=== PATIENT | female | born 1990 | race Caucasian/White ===

== ENCOUNTER 2016-05-22 20:55 | Emergency (ER) | payer OTHER ==
[2016-05-22 20:55] VITALS: BMI 23.5
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
[2016-05-22 21:27] VITALS: BP 107/69; PULSE 77; RESP 18; TEMP 98.3; O2SAT 100
[2016-05-22 21:45] LABS: URINE APPEARANCE CLEAR (CLEAR); URINE BILIRUBIN NEGATIVE (NEGATIVE); URINE BLOOD NEGATIVE (NEGATIVE); URINE COLOR YELLOW (YELLOW); URINE GLUCOSE (UA) NEGATIVE (NEGATIVE); URINE KETONE NEGATIVE (NEGATIVE); URINE LEUKOCYTE ESTERASE LARGE Leu/uL (NEGATIVE); URINE PROTEIN TRACE mg/dL (<30 mg/dL); URINE UROBILINOGEN 0.2 E.U./dL (<1 E.U./dL)
[2016-05-22 21:50] LABS: URINE EPITHELIAL CELLS MANY /hpf (0-5)
--- NOTE | 2016-05-23 18:31 | CARD ---
APPROVED REPORT EKG Measurement Heart [id number] <Conclusion> Normal sinus rhythm Incomplete right bundle branch block Prolonged QT Abnormal ECG
== END 2016-05-22 22:19 | disposition left against medical advice (07) ==
LOC: ED 20:55
DX: R55 Syncope and collapse (principal); F41.9 Anxiety disorder, unspecified; F19.10 Other psychoactive substance abuse, uncomplicated

== ENCOUNTER 2016-07-28 18:44 | Inpatient (IN) | payer MEDICAID, OTHER ==
[2016-07-28 18:45] VITALS: BMI 20.7
--- NOTE | 2016-07-28 19:04 | ED PDOC ---
Arrival/HPI <Willem Lewis - Last Filed: 07/28/16 22:03> - General Historian: Patient - History of Present Illness Time/Duration: Prior to Arrival Context: Home <Frida Gamino - Last Filed: 07/29/16 15:32> - General Chief Complaint: Lower Extremity Problem/Injury Time Seen by Provider: 07/28/16 18:47 - History of Present Illness Narrative History of Present Illness (Text): 07/28/16 18:58 This 25 yo female presents to this ED c/o right hip pain x [employer]. Patient stated she loss balanced while walking on her driveway, falling on her right side. Patient is c/o severe pain, and she is requesting pain medication. Patient denies head injury, back pain, sob, cp, abdominal pain, dizziness, or syncope. Patient stated she discharge fro [facility] early this morning. (Frida Gamino) Past Medical History - Provider Review Nursing Documentation Reviewed: Yes - Infectious Disease Hx of Infectious Diseases: None - Past Medical History Past Medical History: Unable to Obtain - Cardiac Hx Hypertension: No - Pulmonary Hx Tuberculosis: No - Neurological Hx Seizures: Yes - HEENT Hx HEENT Disorder: No - Renal Hx Renal Disorder: No - Endocrine/Metabolic Hx Endocrine Disorders: No - Hematological/Oncological Hx Anemia: Yes - Integumentary Hx Dermatological Disorder: No - Musculoskeletal/Rheumatological Hx Musculoskeletal Disorders: No - Gastrointestinal Hx Gastrointestinal Disorders: No - Genitourinary/Gynecological Hx Sexually Transmitted Diseases: No - Psychiatric Hx Anxiety: Yes Hx Bipolar Disorder: Yes Hx Depression: Yes Hx Substance Use: Yes - Past Surgical History Past Surgical History: Unable to Obtain - Surgical History Hx Section: Yes - Anesthesia Hx Anesthesia: Yes Hx Anesthesia Reactions: No Hx Malignant Hyperthermia: No - Suicidal Assessment Feels Threatened In Home Enviroment: No <Frida Gamino - Last Filed: 07/29/16 15:32> Family/Social History - Physician Review Nursing Documentation Reviewed: Yes Family/Social History: No Known Family HX Smoking Status: Heavy Smoker > 10 Cigarettes Daily Hx Alcohol Use: No Frequency of alcohol use: Socially Hx Substance Use: Yes Substance used: heroin, cocaine, methadone Hx Substance Use Treatment: Yes ([facility]) <Frida Gamino - Last Filed: 07/29/16 15:32> Allergies/Home Meds <Willem Lewis - Last Filed: 07/28/16 22:03> <Frida Gamino - Last Filed: 07/29/16 15:32> Allergies/Adverse Reactions: Allergies Penicillins Allergy (Verified 07/21/16 13:26) cheese Adverse Reaction (Intermediate, Verified 07/12/16 12:54) RASH Home Medications: Home Meds Medication Instructions Recorded Confirmed Gabapentin 300 mg PO BID 07/21/16 07/29/16 Review of Systems - Review of Systems Constitutional: Normal. absent: Fatigue, Weight Change, Fevers Eyes: Normal ENT: Normal Respiratory: Normal. absent: SOB, Cough Cardiovascular: Normal. absent: Chest Pain, Palpitations Gastrointestinal: Normal. absent: Abdominal Pain, Nausea, Vomiting Genitourinary Female: Normal. absent: Dysuria, Frequency, Hematuria, Vaginal Bleeding, Vaginal Discharge Musculoskeletal: Other (See HPI) Skin: Normal Neurological: Normal. absent: Headache, Dizziness, Focal Weakness, Speech Changes, Facial Droop Endocrine: Normal. absent: Polydipsia Hemo/Lymphatic: Normal Psychiatric: Normal, Other (HX. Poly substance abuse) <Frida Gamino - Last Filed: 07/29/16 15:32> Physical Exam Temperature: Afebrile Blood Pressure: Normal Pulse: Regular Respiratory Rate: Normal Appearance: Positive for: Well-Appearing, Non-Toxic, Comfortable Pain Distress: None Mental Status: Positive for: Alert and Oriented X 3 - Systems Exam Head: Present: Atraumatic, Normocephalic, Other (No raccoon sign. No britton sign) Pupils: Present: PERRL Extroacular Muscles: Present: EOMI. No: Entrapment Conjunctiva: Present: Normal Ears: Present: Normal, NORMAL TM, Normal Canal, Other (No hemotympanum). No: Erythema, TM Bulging, Fluid, TM Perf Mouth: Present: Moist Mucous Membranes Pharnyx: Present: Normal. No: ERYTHEMA, EXUDATE, TONSILS ENLARGED Nose (External): Present: Atraumatic Nose (Internal): Present: Normal Inspection Neck: Present: Normal Range of Motion, Trachea Midline. No: Meningeal Signs, MIDLINE TENDERNESS, Paraspinal Tenderness, Lymphadenopathy Respiratory/Chest: Present: Clear to Auscultation, Good Air Exchange. No: Respiratory Distress, Accessory Muscle Use Cardiovascular: Present: Regular Rate and Rhythm, Normal S1, S2. No: Murmurs Abdomen: Present: Normal Bowel Sounds. No: Tenderness, Distention, Peritoneal Signs Back: Present: Normal Inspection. No: CVA Tenderness, Midline Tenderness, Paraspinal Tenderness Upper Extremity: Present: Normal Inspection, Normal ROM, NORMAL PULSES, Neurovascularly Intact, Capillary Refill < 2s. No: Cyanosis, Edema, Tenderness , Deformity Lower Extremity: Present: NORMAL PULSES, Neurovascularly Intact, Capillary Refill < 2 s, Other (Patient did not allow me to move right lower extremity. Limited evaluation od right lower extremity. Severe tenderness right hip, when right lower leg was flexed. Patient noted mild right knee tenderness. no ankle or foot tenderness. no deformity. Pedis pulses b/l normal, +2). No: Edema, CALF TENDERNESS Neurological: Present: GCS=15, CN II-XII Intact, Speech Normal, Motor Func Grossly Intact, Normal Sensory Function, Normal Cerebellar Funct Skin: Present: Warm, Dry, Normal Color. No: Rashes Psychiatric: Present: Alert, Oriented x 3, Normal Insight, Normal Concentration <Frida Gamino - Last Filed: 07/29/16 15:32> Vital Signs Temp Pulse Resp BP Pulse Ox 07/28/16 18:45 98.9 F 106 H 19 134/80 100 Medical Decision Making <Willem Lewis - Last Filed: 07/28/16 22:03> Re-evaluation Time: 22:21 Reassessment Condition: Re-examined, Improving,but remains with symptoms - Lab Interpretations I have reviewed the lab results: Yes Interpretation: No clinic. lab abnormalty <Frida Gamino - Last Filed: 07/29/16 15:32> ED Course and Treatment: 07/28/16 22:[address] Gruber regarding right hip fracture. He agrees with plan for admission, and recommended to call orthopedist. 07/28/16 22:[address] Taylor Orthopedist who reviewed images, and he recommended to have patient transfer to a Trauma center to preserve right femoral head. 07/29/16 01:15 [place] [facility], [facility], and [facility] to attempt to transfer patient without success. I communicate this with Dr. Quinteros. 07/29/16 01:28 Dr. Quinteros had called [facility] to set up team for emergency hip surgery in this hospital (Frida Gamino) - Lab Interpretations Lab Results: 07/28/16 22:55 07/29/16 00:02 Lab Results 07/29/16 00:59: Blood Type Confirm O POSITIVE 07/29/16 00:02: Blood Type O POSITIVE, Antibody Screen Negative, Crossmatch See Detail, BBK History Checked No verified bt 07/29/16 00:02: Sodium 137, Potassium 4.7, Chloride 101, Carbon Dioxide 28, Anion Gap 13, BUN 21, Creatinine 0.7, Est GFR ( Amer) > 60, Est GFR (Non- Af Amer) > 60, Random Glucose 128 H, Calcium 9.5, Total Bilirubin 0.5, AST 78 H , ALT 108 H, Alkaline Phosphatase 117, Total Protein 8.6 H, Albumin 3.6, Globulin 5.0, Albumin/Globulin Ratio 0.7 L 07/28/16 22:55: Urine Color Light yellow, Urine Appearance Clear, Urine pH 6.0, Ur Specific [facility] 1.015, Urine Protein Negative, Urine Glucose (UA) Negative, Urine Ketones Negative, Urine Blood Negative, Urine Nitrate Negative, Urine Bilirubin Negative, Urine Urobilinogen 0.2, Ur Leukocyte Esterase Trace H, Urine RBC 0 - 2, Urine WBC 2 - 5, Ur Epithelial Cells 0 - 2, Urine Bacteria Trace 07/28/16 22:55: PT 10.6, INR 0.98, APTT 23.7 07/28/16 22:55: WBC 12.6 H D, RBC 4.32, Hgb 12.3, Hct 36.4, MCV 84.3, MCH 28.5, MCHC 33.8, RDW 13.1, Plt Count 253, MPV 11.4 H, Gran % 78.8 H, Lymph % (Auto) 15.9 L, [place] % (Auto) 4.9, Eos % (Auto) 0.2 L, Baso % (Auto) 0.2, Gran # 9.88 H , Lymph # 2.0, [place] # 0.6, Eos # 0.0, Baso # 0.03 07/28/16 19:25: Beta HCG, Quant < 2.39 - RAD Interpretation Narrative RAD Interpretations (Text): 07/28/16 22:15 Right Hip X-rays: Right femoral neck fracture. Knee x-rays: No knee fracture (Gamino,Nahim P) Radiology Orders: 07/28/16 18:57 Hip Right [HIP MIN 2V W/ PELVIS RT] [RAD] Stat KNEE RIGHT 2 VIEWS (AP & LAT) [RAD] Stat - Medication Orders Current Medication Orders: Acetaminophen (Tylenol 325mg Tab) 650 mg PO Q4 PRN PRN Reason: Fever >100.4 F Last Admin: 07/29/16 07:35 Dose: 650 mg Re-Assess: [facility] Pain/Vitals Document 07/29/16 08:35 YANE (Rec: 07/29/16 14:57 YANE [facility] [id number]) Pain Reassessment Is This A Pain ReAssessment? No Sleep Is patient sleeping during reassessment? No Presence of Pain Presence of Pain Yes Diphenhydramine HCl (Benadryl) 50 mg IVP Q4 PRN PRN Reason: Allergy symptoms Last Admin: 07/29/16 12:30 Dose: 50 mg Comments: Pt states eyes are itching/burning Enoxaparin Sodium (Lovenox) 40 mg SC DAILY GARY PRN Reason: Protocol Last Admin: 07/29/16 12:00 Dose: 40 mg Hydromorphone HCl (Dilaudid) 0.5 mg IVP Q4H PRN PRN Reason: Pain, severe (8-10) Last Admin: 07/29/16 12:29 Dose: 0.5 mg Re-Assess: [facility] Pain Assessment Document 07/29/16 13:29 YANE (Rec: 07/29/16 14:35 YANE [facility] [id number]) Pain Reassessment Is this a pain reassessment? Yes Sleep Is patient sleeping during reassessment? No Presence of Pain Presence of Pain Yes Pain Scale Used Pain Scale Used Numeric Location Left, Right or Bilateral Right Pain Location Body Site Hip Description Intensity of Pain at present 10 Acceptable Level of Pain 0 Hydromorphone HCl (Dilaudid) 0.5 mg IVP Q15M PRN PRN Reason: Pain, moderate (4-7) Last Admin: 07/29/16 06:40 Dose: 0.5 mg Sodium Chloride (Sodium Chloride 0.9%) 1,000 mls @ 100 mls/hr IV .Q10H GARY Last Admin: 07/29/16 14:44 Dose: 100 mls/hr Clindamycin Phosphate 900 mg/ (Sodium Chloride) 106 mls @ 106 mls/hr IVPB Q8 GARY PRN Reason: Protocol Stop: 07/29/16 22:59 Last Admin: 07/29/16 14:56 Dose: 106 mls/hr Ondansetron HCl (Zofran Inj) 4 mg IVP ONCE PRN PRN Reason: Nausea/Vomiting Discontinued Medications Acetaminophen (Tylenol 325mg Tab) 650 mg PO STAT STA Stop: 07/28/16 19:02 Last Admin: 07/28/16 21:19 Dose: 650 mg Re-Assess: MAR Pain/Vitals Document 07/28/16 22:19 OCS (Rec: 07/29/16 00:03 OCS [id number]) Pain Reassessment Is This A Pain ReAssessment? Yes Sleep Is patient sleeping during reassessment? No Presence of Pain Presence of Pain Yes Clindamycin Phosphate (Cleocin) Confirm Administered Dose 600 mg .ROUTE .STK- MED ONE Stop: 07/29/16 03:41 Last Admin: 07/29/16 03:45 Dose: 600 mg Comments: ORM Administered Route: IVPB Fentanyl (Fentanyl) Confirm Administered Dose 200 mcg .ROUTE .STK-MED ONE Stop: 07/29/16 02:28 Hydromorphone HCl (Dilaudid) 1 mg IVP STAT STA Stop: 07/28/16 22:26 Last Admin: 07/28/16 22:57 Dose: 1 mg Hydromorphone HCl (Dilaudid) 2 mg IVP STAT STA Stop: 07/28/16 23:51 Last Admin: 07/28/16 23:59 Dose: 2 mg Hydromorphone HCl (Dilaudid) Confirm Administered Dose 0.5 mg .ROUTE .STK-MED ONE Stop: 07/29/16 06:15 Hydromorphone HCl (Dilaudid) Confirm Administered Dose 0.5 mg .ROUTE .STK-MED ONE Stop: 07/29/16 06:42 Ceftriaxone Sodium (Rocephin 1 Gram Ivpb) 1 gm in 100 mls @ 200 mls/hr IVPB STAT STA PRN Reason: Protocol Stop: 07/29/16 03:10 Lactated Ringer's (Lactated Ringer's) 1,000 mls @ 75 mls/hr IV .[id number] GARY Stop: 07/29/16 07:53 Ketorolac Tromethamine (Toradol) 30 mg IM STAT STA Stop: 07/28/16 18:57 Last Admin: 07/28/16 21:19 Dose: 30 mg Re-Assess: MANINDER Pain Assessment Document 07/28/16 22:19 OCS (Rec: 07/29/16 00:03 OCS [id number]) Pain Reassessment Is this a pain reassessment? Yes Sleep Is patient sleeping during reassessment? No Presence of Pain Presence of Pain Yes Ketorolac Tromethamine (Toradol) 30 mg IM ONCE ONE Stop: 07/29/16 05:53 Lidocaine HCl (Lidocaine 1% (20ml)) Confirm Administered Dose 20 ml .ROUTE .STK- MED ONE Stop: 07/29/16 02:28 Midazolam HCl (Versed Inj) Confirm Administered Dose 2 mg .ROUTE .STK-MED ONE Stop: 07/29/16 02:28 Pneumococcal Polyvalent Vaccine (Pneumovax 23 Vaccine) 0.5 ml IM .ONCE ONE Stop: 07/29/16 13:41 Propofol (Diprivan) Confirm Administered Dose 400 mg .ROUTE .STK-MED ONE Stop: 07/29/16 02:28 Rocuronium [place] (Zemuron) Confirm Administered Dose 50 mg .ROUTE .STK-MED ONE Stop: 07/29/16 02:28 Succinylcholine Chloride (Quelicin) Confirm Administered Dose 200 mg IV .STK- MED ONE Stop: 07/29/16 02:28 - PA / CORRECTIONS NURSE / Resident Statement ENRIQUE has reviewed & agrees with the documentation as recorded. ENRIQUE has examined the patient and agrees with the treatment plan. <Willem Lewis - Last Filed: 07/28/16 22:03> Disposition/Present on Arrival <Willem Lewis - Last Filed: 07/28/16 22:03> - Present on Arrival Any Indicators Present on Arrival: No History of DVT/PE: No History of Uncontrolled Diabetes: No Urinary Catheter: No History of Decub. Ulcer: No History Surgical Site Infection Following: None - Disposition Have Diagnosis and Disposition been Completed?: Yes Disposition Time: 01:30 Patient Plan: Admission <Gamino,Nahim P - Last Filed: 07/29/16 15:32> - Disposition Diagnosis: Femoral neck fracture Disposition: HOSPITALIZED Patient Problems: Current Active Problems Problem Status Onset Femoral neck fracture Acute Condition: STABLE
[2016-07-28] MEDS ORDERED: HYDROmorphone 1 mg/ml ISec IVP STA (22:25)
[2016-07-28 23:05] LABS: ADD MANUAL DIFF? NO
[2016-07-28 23:12] LABS: BASO # 0.03 K/mm3 (0.0-2.0); BASO % 0.2 % (0.0-3.0); EOS % 0.2 % (1.5-5.0); GRAN # 9.88 (1.4-6.5); GRAN % 78.8 % (50.0-68.0); HEMATOCRIT 36.4 % (36.0-48.0); LYMPH % 15.9 % (22.0-35.0); MEAN CELL VOLUME 84.3 fL (80.0-105.0); MEAN CORPUSCULAR HEMOGLOBIN 28.5 pg (25.0-35.0); MEAN CORPUSCULAR HGB CONC 33.8 g/dl (31.0-37.0); MEAN PLATELET VOLUME 11.4 fl (7.0-11.0); MONO # 0.6 (0.1-0.6); MONO % 4.9 % (1.0-6.0); PLATELET COUNT 253 10^3/uL (120.0-450.0); RED CELL DISTRIBUTION WIDTH 13.1 % (11.5-14.5); URINE BILIRUBIN NEGATIVE (NEGATIVE); URINE BLOOD NEGATIVE (NEGATIVE); URINE GLUCOSE (UA) NEGATIVE (NEGATIVE); URINE KETONE NEGATIVE (NEGATIVE); URINE LEUKOCYTE ESTERASE TRACE Leu/uL (NEGATIVE); URINE PROTEIN NEGATIVE mg/dL (<30 mg/dL); URINE UROBILINOGEN 0.2 E.U./dL (<1 E.U./dL); WHITE BLOOD COUNT 12.6 10^3/ul (4.5-11.0)
[2016-07-28 23:13] LABS: URINE COLOR LIGHT YELLOW (YELLOW)
[2016-07-28 23:14] LABS: URINE APPEARANCE CLEAR (CLEAR)
[2016-07-28 23:23] LABS: INR 0.98 (0.93-1.08); PARTIAL THROMBOPLASTIN TIME 23.7 Seconds (23.7-30.8)
[2016-07-28] MEDS ORDERED: HYDROmorphone 2 mg/ml ISec IVP STA (23:50)
[2016-07-28 23:54] LABS: URINE BACTERIA TRACE (NEG); URINE EPITHELIAL CELLS 0 - 2 /hpf (0-5); URINE RBC 0 - 2 /hpf (0-2)
[2016-07-29 00:36] LABS: ALB/GLOB RATIO 0.7 (1.1-1.8); ALKALINE PHOSPHATASE 117 U/L (38-133); ALT/SGPT 108 U/L (7-56); AST/SGOT 78 U/L (15-39); BILIRUBIN,TOTAL 0.5 mg/dL (0.2-1.3); BLOOD UREA NITROGEN 21 mg/dL (7-21); CALCIUM 9.5 mg/dL (8.4-10.5); CARBON DIOXIDE 28 mmol/L (21-33); GFR AFRICAN-AMERICAN > 60; GLUCOSE,RANDOM 128 mg/dL (70-110); POTASSIUM 4.7 mmol/L (3.6-5.0); SODIUM 137 mmol/L (132-148); TOTAL PROTEIN 8.6 g/dL (5.8-8.3)
[2016-07-29 00:38] LABS: CHLORIDE 101 mmol/L (98-107)
[2016-07-29] MEDS ORDERED: Lidocaine 1% Inj (20ml) ONE (02:27)
[2016-07-29] MEDS ORDERED: Propofol 10 mg/ml Inj (20 ML) ONE (02:27)
[2016-07-29] MEDS ORDERED: Rocuronium 10 mg/ml (5 ml) ONE (02:27)
[2016-07-29] MEDS ORDERED: Midazolam 2 MG/2 ML VIAL ONE (02:27)
[2016-07-29] MEDS ORDERED: Succinylcholine 200 mg/10 ml Inj IV ONE (02:27)
[2016-07-29] MEDS ORDERED: cefTRIAXone 1 gm 1 GM/100 ML BAG IVPB STA (02:41)
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
[2016-07-29] MEDS ORDERED: Lactated Ringer's 1,000 ML IV SCH (05:52)
--- NOTE | 2016-07-29 06:05 | PCM.SURG1 ---
Surgeon's Initial Post Op Note - Surgeon's Notes Surgeon: Dr. Quinteros Service Order Dispatcher Chief: Jagdish Soto PGY-1 Type of Anesthesia: General Endo Pre-Operative Diagnosis: Right surgical neck fracture of femur Operative Findings: same Post-Operative Diagnosis: same Operation Performed: R ORIF w/ pinning x3 Specimen/Specimens Removed: n/a Estimated Blood Loss: EBL {In ML}: 75 Blood Products Given: N/A Drains Used: No Drains Post-Op Condition: Good Date of Surgery/Procedure: 07/29/16 Time of Surgery/Procedure: 03:45
[2016-07-29] MEDS: HYDROmorphone 0.5 mg/0.5 ml ISec IVP PRN ×6 (06:10→20:51)
[2016-07-29] MEDS ORDERED: HYDROmorphone 0.5 mg/0.5 ml ISec ONE ×2 (06:14→06:41)
[2016-07-29] MEDS: Enoxaparin 40 mg Syringe SC SCH ×2 (06:40→12:00)
[2016-07-29 09:25] LABS: ADD MANUAL DIFF? NO
--- NOTE | 2016-07-29 09:25 | RAD ---
PROCEDURE: Right hip portable HISTORY: s/p R ORIF COMPARISON: TECHNIQUE: Single-view FINDINGS: There are 3 orthopedic screws in the right hip. There is anatomic alignment. No complicating factors IMPRESSION: As above
--- NOTE | 2016-07-29 09:28 | RAD ---
PROCEDURE: Right Knee Radiographs. HISTORY: pain COMPARISON: None. FINDINGS: BONES: Normal. No fracture. JOINTS: Normal. No osteoarthritis. JOINT EFFUSION: None. OTHER FINDINGS: None. IMPRESSION: Normal radiographs of the right knee.
--- NOTE | 2016-07-29 09:28 | RAD ---
PROCEDURE: Pelvis and right hip HISTORY: pain s/p fall COMPARISON: TECHNIQUE: Two views FINDINGS: There is a displaced transverse right femoral neck fracture. The pelvis is intact IMPRESSION: There is a displaced transverse right femoral neck fracture. The pelvis is intact
[2016-07-29 09:33] LABS: BASO # 0.01 K/mm3 (0.0-2.0); BASO % 0.1 % (0.0-3.0); EOS % 0.2 % (1.5-5.0); GRAN # 6.85 (1.4-6.5); HEMATOCRIT 29.7 % (36.0-48.0); LYMPH # 1.3 (1.2-3.4); LYMPH % 14.3 % (22.0-35.0); MEAN CELL VOLUME 82.3 fL (80.0-105.0); MEAN CORPUSCULAR HEMOGLOBIN 27.1 pg (25.0-35.0); MEAN PLATELET VOLUME 11.6 fl (7.0-11.0); MONO # 0.7 (0.1-0.6); MONO % 7.4 % (1.0-6.0); PLATELET COUNT 214 10^3/uL (120.0-450.0); WHITE BLOOD COUNT 8.8 10^3/ul (4.5-11.0)
[2016-07-29 09:43] LABS: ALB/GLOB RATIO 0.7 (1.1-1.8); ALKALINE PHOSPHATASE 108 U/L (38-133); ALT/SGPT 97 U/L (7-56); AST/SGOT 63 U/L (15-39); BILIRUBIN,TOTAL 0.6 mg/dL (0.2-1.3); BLOOD UREA NITROGEN 19 mg/dL (7-21); CARBON DIOXIDE 27 mmol/L (21-33); CHLORIDE 103 mmol/L (98-107); GFR AFRICAN-AMERICAN > 60; GLUCOSE,RANDOM 112 mg/dL (70-110); PHOSPHOROUS 4.3 mg/dL (2.5-4.5); POTASSIUM 4.1 mmol/L (3.6-5.0); SODIUM 138 mmol/L (132-148); TOTAL PROTEIN 7.9 g/dL (5.8-8.3)
[2016-07-29] MEDS: DiphenhydrAMINE 50 mg/ml Inj IVP PRN (12:30)
[2016-07-29] MEDS ORDERED: Pneumococcal 23-Valent Vaccine IM ONE (13:40)
--- NOTE | 2016-07-29 13:43 | RAD ---
PROCEDURE: Fluoroscopy up to 1 hour HISTORY: O.R.I.F. RIGHT HIP COMPARISON: TECHNIQUE: Fluoroscopy was provided in the operating room. Three images were submitted FINDINGS: There are 3 orthopedic screws in the right hip. There is normal alignment IMPRESSION: As above
[2016-07-29] MEDS: Sodium Chloride 0.9% 1,000 ML IV SCH (14:44)
--- NOTE | 2016-07-29 14:59 | RAD ---
HISTORY: fever COMPARISON: No prior. FINDINGS: LUNGS: The lungs are well inflated and clear. PLEURA: No significant pleural effusion identified, no pneumothorax apparent. CARDIOVASCULAR: Normal. OSSEOUS STRUCTURES: No significant abnormalities. VISUALIZED UPPER ABDOMEN: Normal. OTHER FINDINGS: None. IMPRESSION: No active pulmonary disease.
[2016-07-30] MEDS: Vancomycin 1gm in NS 250ml 1 GM/250 ML BAG IVPB SCH ×2 (00:11→10:51)
[2016-07-30] MEDS: DiphenhydrAMINE 50 mg/ml Inj IVP PRN ×2 (00:11→13:00)
[2016-07-30] MEDS: HYDROmorphone 0.5 mg/0.5 ml ISec IVP PRN ×6 (00:51→21:07)
[2016-07-30] MEDS: Aztreonam 1 Gm in NS 100mL 100 ML IVPB SCH ×3 (06:17→22:26)
[2016-07-30 07:59] LABS: ADD MANUAL DIFF? NO
[2016-07-30 08:07] LABS: BASO # 0.02 K/mm3 (0.0-2.0); BASO % 0.2 % (0.0-3.0); EOS % 0.1 % (1.5-5.0); GRAN # 7.65 (1.4-6.5); GRAN % 75.1 % (50.0-68.0); HEMATOCRIT 31.2 % (36.0-48.0); LYMPH # 1.7 (1.2-3.4); LYMPH % 16.7 % (22.0-35.0); MEAN CELL VOLUME 83.6 fL (80.0-105.0); MEAN CORPUSCULAR HEMOGLOBIN 27.9 pg (25.0-35.0); MEAN CORPUSCULAR HGB CONC 33.3 g/dl (31.0-37.0); MEAN PLATELET VOLUME 11.3 fl (7.0-11.0); MONO # 0.8 (0.1-0.6); MONO % 7.9 % (1.0-6.0); PLATELET COUNT 217 10^3/uL (120.0-450.0); RED CELL DISTRIBUTION WIDTH 12.8 % (11.5-14.5); WHITE BLOOD COUNT 10.2 10^3/ul (4.5-11.0)
[2016-07-30 08:11] LABS: ALB/GLOB RATIO 0.7 (1.1-1.8); ALKALINE PHOSPHATASE 114 U/L (38-133); ALT/SGPT 76 U/L (7-56); AST/SGOT 54 U/L (15-39); BILIRUBIN,TOTAL 0.6 mg/dL (0.2-1.3); BLOOD UREA NITROGEN 10 mg/dL (7-21); CALCIUM 8.8 mg/dL (8.4-10.5); CARBON DIOXIDE 26 mmol/L (21-33); CHLORIDE 103 mmol/L (95-110); GFR AFRICAN-AMERICAN > 60; GLUCOSE,RANDOM 115 mg/dL (70-110); MAGNESIUM 1.9 mg/dL (1.7-2.2); POTASSIUM 3.9 mmol/L (3.6-5.0); SODIUM 137 mmol/L (132-148); TOTAL PROTEIN 7.7 g/dL (5.8-8.3)
--- NOTE | 2016-07-30 08:57 | CP.PCM.PN ---
Subjective - Date & Time of Evaluation Date of Evaluation: 07/30/16 Time of Evaluation: 08:15 - Subjective Subjective: Surgical Progress note for Dr. Quinteros 25 year old female with past medical history of thrombocytopenia, depression, suicidal ideation, hep C, IV heroin and cocaine abuse was found to have right surgical neck fracture of femur after having a fall at home. Patient is s/p right ORIF with pinning POD# 1. Patient seen and examined at bedside. Overnight patient had fever of 100.4, Tylenol was given. Patient still complains of pain at surgical site. Patient reports to passing gas, but no bowel movement yet. Denies having headache, dizziness, SOB, coughs, abdominal pain, vomiting, or urinary symptoms. Objective - Vital Signs/Intake and Output Vital Signs (last 24 hours): Temp Pulse Resp BP Pulse Ox 100.2 F H 104 H 22 114/75 99 07/30/16 07:30 07/30/16 07:30 07/30/16 07:30 07/30/16 07:30 07/30/16 07:30 Intake and Output: 07/30/16 07/30/16 06:59 18:59 Intake Total 2690 Output Total 600 Balance 2090 - Medications Medications: Current Medications Acetaminophen (Tylenol 325mg Tab) 650 mg PO Q4 PRN PRN Reason: Fever >100.4 F Last Admin: 07/30/16 00:34 Dose: 650 mg Diphenhydramine HCl (Benadryl) 50 mg IVP Q4 PRN PRN Reason: Allergy symptoms Last Admin: 07/30/16 00:11 Dose: 50 mg Enoxaparin Sodium (Lovenox) 40 mg SC DAILY GARY PRN Reason: Protocol Last Admin: 07/29/16 12:00 Dose: 40 mg Hydromorphone HCl (Dilaudid) 0.5 mg IVP Q4H PRN PRN Reason: Pain, moderate (4-7) Last Admin: 07/30/16 08:19 Dose: 0.5 mg Sodium Chloride (Sodium Chloride 0.9%) 1,000 mls @ 100 mls/hr IV .Q10H GARY Last Admin: 07/29/16 14:44 Dose: 100 mls/hr Aztreonam (Azactam 1 Gm) 100 mls @ 100 mls/hr IVPB Q8 GARY PRN Reason: Protocol Stop: 08/06/16 06:01 Last Admin: 07/30/16 06:17 Dose: 100 mls/hr Vancomycin HCl (Vancomycin 1gm) 1 gm in 250 mls @ 167 mls/hr IVPB Q12H GARY PRN Reason: Protocol Last Admin: 07/30/16 00:11 Dose: 167 mls/hr - Labs Labs: 07/30/16 07:30 07/29/16 09:10 PT 10.6 Seconds (9.9-11.8) 07/28/16 22:55 INR 0.98 (0.93-1.08) 07/28/16 22:55 APTT 23.7 Seconds (23.7-30.8) 07/28/16 22:55 - Constitutional Appears: Non-toxic, No Acute Distress - Head Exam Head Exam: ATRAUMATIC, NORMAL INSPECTION, NORMOCEPHALIC - Eye Exam Eye Exam: EOMI, Normal appearance - ENT Exam ENT Exam: Mucous Membranes Moist - Neck Exam Neck Exam: Normal Inspection - Respiratory Exam Respiratory Exam: Clear to Ausculation Bilateral, NORMAL BREATHING PATTERN. absent: Wheezes - Cardiovascular Exam Cardiovascular Exam: Tachycardia, +S1, +S2. absent: Murmur - GI/Abdominal Exam GI & Abdominal Exam: Soft, Normal Bowel Sounds. absent: Tenderness - Extremities Exam Extremities Exam: Normal Capillary Refill Additional comments: Right thigh surgical dressing dry, clean, intact, no active bleeding. No signs of infection appreciated. - Neurological Exam Neurological Exam: Alert, Awake, Oriented x3 - Psychiatric Exam Psychiatric exam: Normal Affect, Normal Mood - Skin Skin Exam: Dry, Normal Color, Warm Assessment and Plan - Assessment and Plan (Free Text) Assessment: 25 year old female with past medical history of thrombocytopenia, depression, suicidal ideation, hep C, IV heroin and cocaine abuse was found to have right surgical neck fracture of femur after having a fall at home. Patient is s/p right ORIF with pinning POD# 1 Plan: Right femur surgical neck fracture -R ORIF with pinning POD #1 -Continue non weight bearing -Pain management per medical team -C/w liquid diet -Incentive spirometry -Lovenox 40mg daily D/w with attending
[2016-07-30] MEDS: Enoxaparin 40 mg Syringe SC SCH (10:51)
--- NOTE | 2016-07-30 15:15 | CP.PCM.CON ---
History of Present Illness - History of Present Illness History of Present Illness: 25 year old female with PMH of depression, polysubstance abuse (IV heroin and cocaine) came in to [facility] because of a fall while walking and injury to her right hip. In the ED, she was noted to have a right hip fracture and the patient underwent ORIF and pinning yesterday. After the surgery the patient has been having fever and Infectious Diseases consult is requested to further evaluate and manage. Currently the patient denies headache or dizziness , no sore throat, no cough or rhinorrhea, no SOB, no chest pain, no abdominal pain, no dysphagia, no diarrhea, no dysuria. Review of Systems - Review of Systems All systems: reviewed and no additional remarkable complaints except (as per HPI ) Past Patient History - Infectious Disease Hx of Infectious Diseases: None - Past Social History Smoking Status: Heavy Smoker > 10 Cigarettes Daily - CARDIAC Hx Hypertension: No - PULMONARY Hx Tuberculosis: No - NEUROLOGICAL Hx Seizures: Yes - HEENT Hx HEENT Problems: No - RENAL Hx Chronic Kidney Disease: No - ENDOCRINE/METABOLIC Hx Endocrine Disorders: No - HEMATOLOGICAL/ONCOLOGICAL Hx Anemia: Yes - INTEGUMENTARY Hx Dermatological Problems: No - MUSCULOSKELETAL/RHEUMATOLOGICAL Hx Musculoskeletal Disorders: No - GASTROINTESTINAL Hx Gastrointestinal Disorders: No - GENITOURINARY/GYNECOLOGICAL Hx Sexually Transmitted Disorders: No - PSYCHIATRIC Hx Anxiety: Yes Hx Bipolar Disorder: Yes Hx Depression: Yes Hx Substance Use: Yes - SURGICAL HISTORY Hx Section: Yes - ANESTHESIA Hx Anesthesia: Yes Hx Anesthesia Reactions: No Hx Malignant Hyperthermia: No Meds Allergies/Adverse Reactions: Allergies Allergy/AdvReac Type Severity Reaction Status Date / Time Penicillins Allergy Verified 07/21/16 13:26 cheese AdvReac Intermediate RASH Verified 07/12/16 12:54 - Medications Medications: Current Medications Acetaminophen (Tylenol 325mg Tab) 650 mg PO Q4 PRN PRN Reason: Fever >100.4 F Last Admin: 07/29/16 15:44 Dose: 650 mg Diphenhydramine HCl (Benadryl) 50 mg IVP Q4 PRN PRN Reason: Allergy symptoms Last Admin: 07/29/16 12:30 Dose: 50 mg Enoxaparin Sodium (Lovenox) 40 mg SC DAILY GARY PRN Reason: Protocol Last Admin: 07/29/16 12:00 Dose: 40 mg Hydromorphone HCl (Dilaudid) 0.5 mg IVP Q4H PRN PRN Reason: Pain, severe (8-10) Last Admin: 07/29/16 20:51 Dose: 0.5 mg Hydromorphone HCl (Dilaudid) 0.5 mg IVP Q15M PRN PRN Reason: Pain, moderate (4-7) Last Admin: 07/29/16 06:40 Dose: 0.5 mg Sodium Chloride (Sodium Chloride 0.9%) 1,000 mls @ 100 mls/hr IV .Q10H GARY Last Admin: 07/29/16 14:44 Dose: 100 mls/hr Aztreonam (Azactam 1 Gm) 100 mls @ 100 mls/hr IVPB Q8 GARY PRN Reason: Protocol Stop: 08/06/16 06:01 Vancomycin HCl (Vancomycin 1gm) 1 gm in 250 mls @ 167 mls/hr IVPB Q12H GARY PRN Reason: Protocol Ondansetron HCl (Zofran Inj) 4 mg IVP ONCE PRN PRN Reason: Nausea/Vomiting Physical Exam - Constitutional Appears: Non-toxic, No Acute Distress - Head Exam Head Exam: NORMAL INSPECTION - ENT Exam ENT Exam: Mucous Membranes Moist - Neck Exam Neck exam: Negative for: Lymphadenopathy, Meningismus - Respiratory Exam Respiratory Exam: Decreased Breath Sounds - Cardiovascular Exam Cardiovascular Exam: +S1, +S2 - GI/Abdominal Exam GI & Abdominal Exam: Soft. absent: Tenderness Results - Vital Signs Recent Vital Signs: Last Vital Signs Temp 99.2 F 07/29/16 19:17 Pulse 114 H 07/29/16 16:00 Resp 20 07/29/16 16:00 BP 117/79 07/29/16 16:00 Pulse Ox 100 07/29/16 16:00 - Labs Result Diagrams: 07/30/16 07:30 07/30/16 07:30 Labs: Laboratory Results - last 24 hr 07/29/16 07/29/16 09:10 09:10 WBC 8.8 D RBC 3.61 Hgb 9.8 L Hct 29.7 L MCV 82.3 MCH 27.1 MCHC 33.0 RDW 13.0 Plt Count 214 MPV 11.6 H Gran % 78.0 H Lymph % (Auto) 14.3 L Morrison % (Auto) 7.4 H Eos % (Auto) 0.2 L Baso % (Auto) 0.1 Gran # 6.85 H Lymph # 1.3 Morrison # 0.7 H Eos # 0.0 Baso # 0.01 Sodium 138 Potassium 4.1 Chloride 103 Carbon Dioxide 27 Anion Gap 12 BUN 19 Creatinine 0.7 Est GFR ( Amer) > 60 Est GFR (Non-Af Amer) > 60 Random Glucose 112 H Calcium 9.0 Phosphorus 4.3 Magnesium 2.0 Total Bilirubin 0.6 AST 63 H ALT 97 H Alkaline Phosphatase 108 Total Protein 7.9 Albumin 3.3 Globulin 4.6 Albumin/Globulin Ratio 0.7 L Assessment & Plan - Assessment and Plan (Free Text) Plan: Assessment Systemic Inflammatory Response Syndrome, R/O sepsis source to determined right hip fracture S/P ORIF and pinning POD #1 depression polysubstance abuse (IV heroin and cocaine) positive Hepatitis C antibody Plan Started patient on Vancomycin and Azactam pending blood, urine cx, PCT, CXR Follow up HCV RNA PCR Will order HIV test will follow clinically
--- NOTE | 2016-07-30 15:37 | CP.PCM.PN ---
<Yong Villarreal - Last Filed: 07/30/16 15:31> Subjective - Date & Time of Evaluation Date of Evaluation: 07/30/16 Time of Evaluation: 08:45 - Subjective Subjective: Internal Medicine Progress Note for Dr. Lemos Patient seen and examined at bedside. Today is hospital day 2. Overnight, continued to have a fever despite antibiotics and tylenol for temps; no other acute events. Still complaining of pain, still concerned about medications as concerned she is withdrawing from "50 bags" of heroin (states she injects into neck only, not into arms/legs/hips). Denies chest pain, shortness of breath, focal weakness, emesis. Complains only of pain and some nausea 2/2 pain. Objective - Vital Signs/Intake and Output Vital Signs (last 24 hours): Temp Pulse Resp BP Pulse Ox 100.2 F H 104 H 22 114/75 99 07/30/16 07:30 07/30/16 07:30 07/30/16 07:30 07/30/16 07:30 07/30/16 07:30 Intake and Output: 07/30/16 07/30/16 06:59 18:59 Intake Total 2690 280 Output Total 600 1000 Balance 2090 -720 - Medications Medications: Current Medications Acetaminophen (Tylenol 325mg Tab) 650 mg PO Q4 PRN PRN Reason: Fever >100.4 F Last Admin: 07/30/16 00:34 Dose: 650 mg Diphenhydramine HCl (Benadryl) 50 mg IVP Q4 PRN PRN Reason: Allergy symptoms Last Admin: 07/30/16 13:00 Dose: 50 mg Enoxaparin Sodium (Lovenox) 40 mg SC DAILY GARY PRN Reason: Protocol Last Admin: 07/30/16 10:51 Dose: 40 mg Hydromorphone HCl (Dilaudid) 0.5 mg IVP Q4H PRN PRN Reason: Pain, moderate (4-7) Last Admin: 07/30/16 12:19 Dose: 0.5 mg Sodium Chloride (Sodium Chloride 0.9%) 1,000 mls @ 100 mls/hr IV .Q10H GARY Last Admin: 07/29/16 14:44 Dose: 100 mls/hr Aztreonam (Azactam 1 Gm) 100 mls @ 100 mls/hr IVPB Q8 GARY PRN Reason: Protocol Stop: 08/06/16 06:01 Last Admin: 07/30/16 14:45 Dose: 100 mls/hr Vancomycin HCl (Vancomycin 1gm) 1 gm in 250 mls @ 167 mls/hr IVPB Q12H GARY PRN Reason: Protocol Last Admin: 07/30/16 10:51 Dose: 167 mls/hr - Labs Labs: 07/30/16 07:30 07/30/16 07:30 PT 10.6 Seconds (9.9-11.8) 07/28/16 22:55 INR 0.98 (0.93-1.08) 07/28/16 22:55 APTT 23.7 Seconds (23.7-30.8) 07/28/16 22:55 - Constitutional Appears: Non-toxic, No Acute Distress, Chronically Ill - Head Exam Head Exam: ATRAUMATIC, NORMAL INSPECTION, NORMOCEPHALIC - Eye Exam Eye Exam: EOMI, Normal appearance. absent: Conjunctival injection, Scleral icterus Pupil Exam: absent: Irregular, Unequal - ENT Exam ENT Exam: Mucous Membranes Moist - Neck Exam Neck Exam: Full ROM - Respiratory Exam Respiratory Exam: Clear to Ausculation Bilateral, NORMAL BREATHING PATTERN. absent: Rales, Rhonchi, Wheezes - Cardiovascular Exam Cardiovascular Exam: Tachycardia, REGULAR RHYTHM, +S1, +S2. absent: Bradycardia , Clicks, Irregular Rhythm, JVD, RRR, +S4, Murmur - GI/Abdominal Exam GI & Abdominal Exam: Soft, Tenderness (reports mild tenderness to all abdominal palpation, but complaint of pain incongruent with her physical reaction to palpation at site (no guarding, no flinching, no wincing)), Normal Bowel Sounds. absent: Distended, Firm, Rigid, Diminished Bowel Sounds, Hyperactive Bowel Sounds, Hypoactive Bowel Sounds - Extremities Exam Additional comments: Painful R hip, intentionally limiting RLE ROM due to pain RLE surgical site bandaged, not actively bleeding/oozing through bandaging, acutely tender to palpation at bandaged site but not around it, no gross erythema or swelling at surgical site LLE movement grossly intact RLE foot and toe movement grossly intact Sensation intact and equal in bilateral LE +2 dorsalis pedis pulses bilaterally - Neurological Exam Neurological Exam: Alert, Awake, Oriented x3 - Psychiatric Exam Psychiatric exam: Anxious, Normal Affect - Skin Skin Exam: Dry, Intact (except as noted in extremities exam), Normal Color, Warm Assessment and Plan - Assessment and Plan (Free Text) Assessment: This is a 25 yo F with PMH of thrombocytopenia, depression, suicidal ideation, hep C, IV heroin and cocaine abuse who presented to [facility] for fall resulting in R-hip fracture. She is POD #1 for ORIF with fixation. Plan: 1) Right femur surgical neck fracture -POD #1 for ORIF with fixation -Ortho (Dr. Quinteros) following, appreciate all recs -post procedure X-ray reveals anatomic alignment with [address] -Dilaudid 0.5mg IV Q4h PRN for pain -IVF NS 100ml/hr -Type and cross, 2 units PRBC on standby -Advanced to Full liquid diet, can advance to soft food tomorrow if tolerates well -PT/OT 2) Leukocytosis with fever -Tmax 101.3F, overnight max 100.4F -Likely 2/2 stress + post-surgery vs infectious etiology vs 2/2 withdrawal -ID consulted, appreciate all recs; Vanco and Aztreonam as per ID -UA showed trace LE; Urine culture negative at 48 hours -Blood cultures negative x48 hours -Continue to monitor 3) History Hep C -Positive hep c antibody in 07/20/16, not on medication -Outpatient Management 4) History of anxiety, depression, polysubstance abuse -Psych consulted, appreciate their recs -Pt complaining of anxiety, but hx of drug abuse and seeking behavior, will defer to psych Dispo: Med/Surg post ORIF with fixation of R hip (POD#1), pending blood culture results, further ID input, pending PT/OT eval FEN: Full liquids Access: Peripheral IV (given hx of abuse, avoid PICC lines or central access) Consults: Psych, ID, Ortho Ppx: Lovenox for DVT, Protonix for GI Patient seen, reviewed, and discussed with attending, Dr. Lemos. <Kyung Lemos - Last Filed: 07/30/16 18:02> Objective - Vital Signs/Intake and Output Vital Signs (last 24 hours): Temp Pulse Resp BP Pulse Ox 103 F H 104 H 22 114/75 99 07/30/16 16:43 07/30/16 07:30 07/30/16 07:30 07/30/16 07:30 07/30/16 07:30 Intake and Output: 07/30/16 07/30/16 06:59 18:59 Intake Total 2690 280 Output Total 600 1000 Balance 2090 -720 - Medications Medications: Current Medications Acetaminophen (Tylenol 325mg Tab) 650 mg PO Q4 PRN PRN Reason: Fever >100.4 F Last Admin: 07/30/16 16:43 Dose: 650 mg Diphenhydramine HCl (Benadryl) 50 mg IVP Q4 PRN PRN Reason: Allergy symptoms Last Admin: 07/30/16 13:00 Dose: 50 mg Enoxaparin Sodium (Lovenox) 40 mg SC DAILY GARY PRN Reason: Protocol Last Admin: 07/30/16 10:51 Dose: 40 mg Hydromorphone HCl (Dilaudid) 0.5 mg IVP Q4H PRN PRN Reason: Pain, moderate (4-7) Last Admin: 07/30/16 16:43 Dose: 0.5 mg Sodium Chloride (Sodium Chloride 0.9%) 1,000 mls @ 100 mls/hr IV .Q10H GARY Last Admin: 07/29/16 14:44 Dose: 100 mls/hr Aztreonam (Azactam 1 Gm) 100 mls @ 100 mls/hr IVPB Q8 GARY PRN Reason: Protocol Stop: 08/06/16 06:01 Last Admin: 07/30/16 14:45 Dose: 100 mls/hr Vancomycin HCl (Vancomycin 1gm) 1 gm in 250 mls @ 167 mls/hr IVPB Q12H GARY PRN Reason: Protocol Last Admin: 07/30/16 10:51 Dose: 167 mls/hr - Labs Labs: 07/30/16 07:30 07/30/16 07:30 PT 10.6 Seconds (9.9-11.8) 07/28/16 22:55 INR 0.98 (0.93-1.08) 07/28/16 22:55 APTT 23.7 Seconds (23.7-30.8) 07/28/16 22:55 Attending/Attestation - Attestation I have personally seen and examined this patient.: Yes I have fully participated in the care of the patient.: Yes I have reviewed all pertinent clinical information, including history, physical exam and plan: Yes Notes (Text): 07/30/16 17:58 25 year old female with past medical history of hepatitis C and substance abuse including IVDA and cocaine who presented s/p fall found to have right femur surgical neck fracture. Orthopedics evaluation was appreciated and she is s/p ORIF POD #1. PT evaluation was also appreciated who is recommending acute rehab. Patient however was noted to have fever since yesterday. ID evaluation was appreciated and patient is on iv antibiotics while awaiting cultures which are so far negative to date. She was counselled on risks of continued substance abuse. Psychiatry evaluation was requested. Elevated LFTs likely secondary to history of hepatitis C. Recommended close outpatient follow up at [facility] hepatitis clinic. Kyung Lemos MD Hospitalist.
[2016-07-31] MEDS: Vancomycin 1gm in NS 250ml 1 GM/250 ML BAG IVPB SCH ×3 (00:06→23:40)
[2016-07-31] MEDS: DiphenhydrAMINE 50 mg/ml Inj IVP PRN (00:07)
[2016-07-31] MEDS: Sodium Chloride 0.9% 1,000 ML IV SCH ×2 (00:07→16:57)
[2016-07-31] MEDS: HYDROmorphone 0.5 mg/0.5 ml ISec IVP PRN ×6 (01:05→20:48)
[2016-07-31] MEDS: Aztreonam 1 Gm in NS 100mL 100 ML IVPB SCH ×3 (05:30→22:29)
--- NOTE | 2016-07-31 07:52 | CP.PCM.PN ---
Subjective - Date & Time of Evaluation Date of Evaluation: 07/31/16 Time of Evaluation: 07:35 - Subjective Subjective: Surgery Progress Note for Dr. Quinteros Patient seen and examined at bedside. Patient had a fever of 102.7 and Tylenol was given. Patient still complains of pain at surgical site. Patient complains of right hip pain, sneezing and shaking. Patient revealed that she is a heroin addict and does 50 bags daily. Patient also receives methadone from [facility]. Denies headache, weakness, shortness of breath, chest pain, nausea, vomiting, or urinary complaints. Objective - Vital Signs/Intake and Output Vital Signs (last 24 hours): Temp Pulse Resp BP Pulse Ox 99.3 F 121 H 17 113/73 98 07/31/16 04:30 07/30/16 16:00 07/30/16 16:00 07/30/16 16:00 07/30/16 16:00 Intake and Output: 07/31/16 07/31/16 06:59 18:59 Intake Total 360 Output Total 200 Balance 160 - Medications Medications: Current Medications Acetaminophen (Tylenol 325mg Tab) 650 mg PO Q4 PRN PRN Reason: Fever >100.4 F Last Admin: 07/30/16 22:26 Dose: 650 mg Diphenhydramine HCl (Benadryl) 50 mg IVP Q4 PRN PRN Reason: Allergy symptoms Last Admin: 07/31/16 00:07 Dose: 50 mg Enoxaparin Sodium (Lovenox) 40 mg SC DAILY GARY PRN Reason: Protocol Last Admin: 07/30/16 10:51 Dose: 40 mg Hydromorphone HCl (Dilaudid) 0.5 mg IVP Q4H PRN PRN Reason: Pain, moderate (4-7) Last Admin: 07/31/16 04:35 Dose: 0.5 mg Sodium Chloride (Sodium Chloride 0.9%) 1,000 mls @ 100 mls/hr IV .Q10H GARY Last Admin: 07/31/16 00:07 Dose: 100 mls/hr Aztreonam (Azactam 1 Gm) 100 mls @ 100 mls/hr IVPB Q8 GARY PRN Reason: Protocol Stop: 08/06/16 06:01 Last Admin: 07/31/16 05:30 Dose: 100 mls/hr Vancomycin HCl (Vancomycin 1gm) 1 gm in 250 mls @ 167 mls/hr IVPB Q12H GARY PRN Reason: Protocol Last Admin: 07/31/16 00:06 Dose: 167 mls/hr - Labs Labs: 07/30/16 07:30 07/30/16 07:30 PT 10.6 Seconds (9.9-11.8) 07/28/16 22:55 INR 0.98 (0.93-1.08) 07/28/16 22:55 APTT 23.7 Seconds (23.7-30.8) 07/28/16 22:55 - Constitutional Appears: Non-toxic, No Acute Distress - Head Exam Head Exam: ATRAUMATIC, NORMAL INSPECTION, NORMOCEPHALIC - Eye Exam Eye Exam: EOMI, Normal appearance - ENT Exam ENT Exam: Mucous Membranes Moist - Neck Exam Neck Exam: Normal Inspection - Respiratory Exam Respiratory Exam: Clear to Ausculation Bilateral, NORMAL BREATHING PATTERN. absent: Wheezes, Respiratory Distress - Cardiovascular Exam Cardiovascular Exam: Tachycardia, +S1, +S2. absent: Murmur - GI/Abdominal Exam GI & Abdominal Exam: Soft, Normal Bowel Sounds. absent: Tenderness - Extremities Exam Extremities Exam: Normal Capillary Refill. absent: Joint Swelling, Pedal Edema Additional comments: Right hip wound dressing dry, clean, intact. No signs of infection appreciated. - Neurological Exam Neurological Exam: Alert, Awake, Oriented x3 - Psychiatric Exam Psychiatric exam: Normal Affect, Normal Mood - Skin Skin Exam: Normal Color, Warm Assessment and Plan - Assessment and Plan (Free Text) Assessment: 25 year old female with past medical history of thrombocytopenia, depression, suicidal ideation, hep C, IV heroin and cocaine abuse was found to have right surgical neck fracture of femur after having a fall at home. Patient is s/p right ORIF with pinning POD# 2 Plan: Right femur surgical neck fracture -R ORIF with pinning POD #1 -Start Trapeze for upper body strength -Continue non weight bearing -Pain management per medical team -C/w liquid diet -Incentive spirometry -Lovenox 40mg daily D/w with attending
[2016-07-31] MEDS: Enoxaparin 40 mg Syringe SC SCH (10:53)
--- NOTE | 2016-07-31 14:14 | CP.PCM.PN ---
<Yong Villarreal - Last Filed: 07/31/16 14:10> Subjective - Date & Time of Evaluation Date of Evaluation: 07/31/16 Time of Evaluation: 07:50 - Subjective Subjective: Internal Medicine Progress Note for Dr. Lemos Patient seen and examined at bedside. Today is hospital day 3. POD #2 for R hip ORIF with fixation. Overnight, continued to have a fever despite antibiotics and tylenol for temps; no other acute events. Still complaining of pain, still concerned about potential withdrawal from heroin. Denies chest pain , shortness of breath, focal weakness, emesis. Complains only of pain and some nausea 2/2 pain, but tolerating diet well, asking for more solid food, admits to eating pizza overnight despite instructions not to do so. Objective - Vital Signs/Intake and Output Vital Signs (last 24 hours): Temp Pulse Resp BP Pulse Ox 99.1 F 105 H 20 107/70 97 07/31/16 07:30 07/31/16 07:30 07/31/16 07:30 07/31/16 07:30 07/31/16 07:30 Intake and Output: 07/31/16 07/31/16 06:59 18:59 Intake Total 3210 300 Output Total 200 1000 Balance 3010 -700 - Medications Medications: Current Medications Acetaminophen (Tylenol 325mg Tab) 650 mg PO Q4 PRN PRN Reason: Fever >100.4 F Last Admin: 07/30/16 22:26 Dose: 650 mg Diphenhydramine HCl (Benadryl) 50 mg IVP Q4 PRN PRN Reason: Allergy symptoms Last Admin: 07/31/16 00:07 Dose: 50 mg Enoxaparin Sodium (Lovenox) 40 mg SC DAILY GARY PRN Reason: Protocol Last Admin: 07/31/16 10:53 Dose: 40 mg Hydromorphone HCl (Dilaudid) 0.5 mg IVP Q4H PRN PRN Reason: Pain, moderate (4-7) Last Admin: 07/31/16 08:16 Dose: 0.5 mg Sodium Chloride (Sodium Chloride 0.9%) 1,000 mls @ 100 mls/hr IV .Q10H GARY Last Admin: 07/31/16 00:07 Dose: 100 mls/hr Aztreonam (Azactam 1 Gm) 100 mls @ 100 mls/hr IVPB Q8 GARY PRN Reason: Protocol Stop: 08/06/16 06:01 Last Admin: 07/31/16 05:30 Dose: 100 mls/hr Vancomycin HCl (Vancomycin 1gm) 1 gm in 250 mls @ 167 mls/hr IVPB Q12H GARY PRN Reason: Protocol Last Admin: 07/31/16 10:54 Dose: 167 mls/hr - Labs Labs: 07/30/16 07:30 07/30/16 07:30 PT 10.6 Seconds (9.9-11.8) 07/28/16 22:55 INR 0.98 (0.93-1.08) 07/28/16 22:55 APTT 23.7 Seconds (23.7-30.8) 07/28/16 22:55 - Additional Findings Additional findings: - Constitutional Appears: Non-toxic, No Acute Distress, Chronically Ill - Head Exam Head Exam: ATRAUMATIC, NORMAL INSPECTION, NORMOCEPHALIC - Eye Exam Eye Exam: EOMI, Normal appearance. absent: Conjunctival injection, Scleral icterus Pupil Exam: absent: Irregular, Unequal - ENT Exam ENT Exam: Mucous Membranes Moist - Neck Exam Neck Exam: Full ROM - Respiratory Exam Respiratory Exam: Clear to Ausculation Bilateral, NORMAL BREATHING PATTERN. absent: Rales, Rhonchi, Wheezes - Cardiovascular Exam Cardiovascular Exam: Tachycardia, REGULAR RHYTHM, +S1, +S2. absent: Bradycardia , Clicks, Irregular Rhythm, JVD, RRR, +S4, Murmur - GI/Abdominal Exam GI & Abdominal Exam: Soft, Tenderness (reports mild tenderness to all abdominal palpation, but complaint of pain incongruent with her physical reaction to palpation at site (no guarding, no flinching, no wincing)), Normal Bowel Sounds. absent: Distended, Firm, Rigid, Diminished Bowel Sounds, Hyperactive Bowel Sounds, Hypoactive Bowel Sounds - Extremities Exam Painful R hip, intentionally limiting RLE ROM due to pain RLE surgical site bandaged, not actively bleeding/oozing through bandaging, acutely tender to palpation at bandaged site but not around it, no gross erythema or swelling at surgical site LLE movement grossly intact RLE foot and toe movement grossly intact Sensation intact and equal in bilateral LE +2 dorsalis pedis pulses bilaterally - Neurological Exam Neurological Exam: Alert, Awake, Oriented x3 - Psychiatric Exam Psychiatric exam: Anxious, Normal Affect - Skin Skin Exam: Dry, Intact (except as noted in extremities exam), Normal Color, Warm Assessment and Plan - Assessment and Plan (Free Text) Assessment: This is a 25 yo F with PMH of thrombocytopenia, depression, suicidal ideation, hep C, IV heroin and cocaine abuse who presented to [facility] for fall resulting in R-hip fracture. She is POD #2 for ORIF with fixation. Plan: 1) Right femur surgical neck fracture -POD #2 for ORIF with fixation -Ortho (Dr. Quinteros) following, appreciate all recs; ok to advance to regular diet -post procedure X-ray reveals anatomic alignment with [address] -Dilaudid 0.5mg IV Q4h PRN for pain -IVF NS 100ml/hr -Type and cross, 2 units PRBC on standby -PT/OT, continue OOB to chair as tolerated, continue non-weight bearing 2) Leukocytosis with fever -Tmax 103F, overnight max 103F; leukocytosis 10.2 today -Likely 2/2 stress + post-surgery vs infectious etiology vs 2/2 withdrawal -ID consulted, appreciate all recs; Vanco and Aztreonam as per ID, suspect component from withdrawal as well, rec consulting Psych -UA showed trace LE; Urine culture negative at 48 hours -Blood cultures negative x48 hours -Continue to monitor 3) History Hep C -Positive hep c antibody in 07/20/16, not on medication -Outpatient Management 4) History of anxiety, depression, polysubstance abuse -Psych consulted, appreciate their recs -Pt complaining of anxiety, but hx of drug abuse and seeking behavior, will defer to psych Dispo: Med/Surg post ORIF with fixation of R hip (POD#2), continuing abx and tx for fevers/leukocytosis, pending Psych input FEN: Regular diet Access: Peripheral IV (given hx of abuse, avoid PICC lines or central access) Consults: Psych, ID, Ortho Ppx: Lovenox for DVT, Protonix for GI Patient seen, reviewed, and discussed with attending, Dr. Lemos. <Kyung Lemos - Last Filed: 07/31/16 22:00> Objective - Vital Signs/Intake and Output Vital Signs (last 24 hours): Temp Pulse Resp BP Pulse Ox 103 F H 107 H 23 99/62 L 97 07/31/16 18:51 07/31/16 16:00 07/31/16 16:00 07/31/16 16:00 07/31/16 16:00 Intake and Output: 07/31/16 08/01/16 18:59 06:59 Intake Total 300 Output Total 1000 Balance -700 - Medications Medications: Current Medications Acetaminophen (Tylenol 325mg Tab) 650 mg PO Q4 PRN PRN Reason: Fever >100.4 F Last Admin: 07/31/16 18:51 Dose: 650 mg Clonazepam (Klonopin) 0.5 mg PO AMHS GARY PRN Reason: Protocol Last Admin: 07/31/16 21:39 Dose: 0.5 mg Clonidine HCl (Catapres) 0.1 mg PO BID PRN PRN Reason: withdrawals, hold if BP <100/9 Diphenhydramine HCl (Benadryl) 50 mg IVP Q4 PRN PRN Reason: Allergy symptoms Last Admin: 07/31/16 00:07 Dose: 50 mg Enoxaparin Sodium (Lovenox) 40 mg SC DAILY GARY PRN Reason: Protocol Last Admin: 07/31/16 10:53 Dose: 40 mg Gabapentin (Neurontin) 300 mg PO TID GARY PRN Reason: Protocol Last Admin: 07/31/16 18:55 Dose: 300 mg Hydromorphone HCl (Dilaudid) 0.5 mg IVP Q4H PRN PRN Reason: Pain, moderate (4-7) Last Admin: 07/31/16 20:48 Dose: 0.5 mg Sodium Chloride (Sodium Chloride 0.9%) 1,000 mls @ 100 mls/hr IV .Q10H GARY Last Admin: 07/31/16 16:57 Dose: 100 mls/hr Aztreonam (Azactam 1 Gm) 100 mls @ 100 mls/hr IVPB Q8 GARY PRN Reason: Protocol Stop: 08/06/16 06:01 Last Admin: 07/31/16 14:26 Dose: 100 mls/hr Vancomycin HCl (Vancomycin 1gm) 1 gm in 250 mls @ 167 mls/hr IVPB Q12H GARY PRN Reason: Protocol Last Admin: 07/31/16 10:54 Dose: 167 mls/hr Quetiapine Fumarate (Seroquel) 25 mg PO HS GARY PRN Reason: Protocol Last Admin: 07/31/16 21:40 Dose: 25 mg - Labs Labs: 07/30/16 07:30 07/30/16 07:30 PT 10.6 Seconds (9.9-11.8) 07/28/16 22:55 INR 0.98 (0.93-1.08) 07/28/16 22:55 APTT 23.7 Seconds (23.7-30.8) 07/28/16 22:55 Attending/Attestation - Attestation I have personally seen and examined this patient.: Yes I have fully participated in the care of the patient.: Yes I have reviewed all pertinent clinical information, including history, physical exam and plan: Yes Notes (Text): 07/31/16 21:57 25 year old female with past medical history of hepatitis C and substance abuse including IVDA and cocaine who presented s/p fall found to have right femur surgical neck fracture. She was seen by orthopedics and is now s/p ORIF POD # 2. She was also seen by PT who recommended acute rehab. This was discussed with SW/CMx. However patient continues to be having fevers despite IV antibiotics. ID is following the patient. Cultures are negative to day. She was counselled on risks of continued substance abuse. Psychiatry evaluation is pending. Elevated LFTs likely secondary to history of hepatitis C. Recommended close outpatient follow up at [facility] hepatitis clinic. Kyung Lemos MD Hospitalist.
--- NOTE | 2016-07-31 16:30 | CP.PCM.PN ---
Subjective - Date & Time of Evaluation Date of Evaluation: 07/31/16 Time of Evaluation: 09:20 - Subjective Subjective: Still had fever last night but this morning has been afebrile. Patient is complaining of "the shakes" which she attributes to drug withdrawal. Still with right leg pain, no nausea, no diarrhea. Objective - Vital Signs/Intake and Output Vital Signs (last 24 hours): Temp Pulse Resp BP Pulse Ox 99.3 F 121 H 17 113/73 98 07/31/16 04:30 07/30/16 16:00 07/30/16 16:00 07/30/16 16:00 07/30/16 16:00 Intake and Output: 07/30/16 07/31/16 18:59 06:59 Intake Total 280 Output Total 1000 Balance -720 - Medications Medications: Current Medications Acetaminophen (Tylenol 325mg Tab) 650 mg PO Q4 PRN PRN Reason: Fever >100.4 F Last Admin: 07/30/16 22:26 Dose: 650 mg Diphenhydramine HCl (Benadryl) 50 mg IVP Q4 PRN PRN Reason: Allergy symptoms Last Admin: 07/31/16 00:07 Dose: 50 mg Enoxaparin Sodium (Lovenox) 40 mg SC DAILY GARY PRN Reason: Protocol Last Admin: 07/30/16 10:51 Dose: 40 mg Hydromorphone HCl (Dilaudid) 0.5 mg IVP Q4H PRN PRN Reason: Pain, moderate (4-7) Last Admin: 07/31/16 04:35 Dose: 0.5 mg Sodium Chloride (Sodium Chloride 0.9%) 1,000 mls @ 100 mls/hr IV .Q10H GARY Last Admin: 07/31/16 00:07 Dose: 100 mls/hr Aztreonam (Azactam 1 Gm) 100 mls @ 100 mls/hr IVPB Q8 GARY PRN Reason: Protocol Stop: 08/06/16 06:01 Last Admin: 07/31/16 05:30 Dose: 100 mls/hr Vancomycin HCl (Vancomycin 1gm) 1 gm in 250 mls @ 167 mls/hr IVPB Q12H GARY PRN Reason: Protocol Last Admin: 07/31/16 00:06 Dose: 167 mls/hr - Labs Labs: 07/30/16 07:30 07/30/16 07:30 PT 10.6 Seconds (9.9-11.8) 07/28/16 22:55 INR 0.98 (0.93-1.08) 07/28/16 22:55 APTT 23.7 Seconds (23.7-30.8) 07/28/16 22:55 - Constitutional Appears: Non-toxic, No Acute Distress - Head Exam Head Exam: NORMAL INSPECTION - ENT Exam ENT Exam: Mucous Membranes Moist - Neck Exam Neck Exam: absent: Lymphadenopathy, Meningismus - Respiratory Exam Respiratory Exam: Decreased Breath Sounds - Cardiovascular Exam Cardiovascular Exam: +S1, +S2 - GI/Abdominal Exam GI & Abdominal Exam: Soft. absent: Tenderness Assessment and Plan - Assessment and Plan (Free Text) Plan: Assessment Systemic Inflammatory Response Syndrome, consider due to drug withdrawal syndrome, R/O sepsis although so far no source has been identified right hip fracture S/P ORIF and pinning POD #2 depression polysubstance abuse (IV heroin and cocaine) positive Hepatitis C antibody Plan continue Vancomycin and Azactam day 2; blood, urine cx are negative x 1 day, PCT is only 0.13, CXR does not show infiltrates; if the cultures continue to be negative by tomorrow, will d/c antibiotics Follow up HCV RNA PCR follow up HIV test will continue to follow clinically
--- NOTE | 2016-07-31 18:53 | CON ---
DATE: 07/31/2016 HISTORY OF PRESENT ILLNESS: Shortly, the patient is a 25-year-old female with long and debilitating history of opioid addiction and cocaine abuse. The patient was admitted to the medical floor for dinah karon of a broken hip. Psych consult was called for evaluation of anxiety. The patient claimed that she has history of bipolar disorder. The patient also has history of substance abuse. The patient w as seen and examined. The patient presented to be tearful. The patient said that she was started on pain medication after , patient reported that she got addicted to the pain medication and t hat is why she was not able to afford pain medication anymore and she started to use heroin. She was using approximately 50 bags a day intravenously. The patient is shooting in her neck as well as arm . The patient has complications because of that. The patient has hepatitis C. The patient also has withdrawal symptoms. The patient complained of sneezing as well as upset stomach. The patient also reported that she is having sweats. 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 The patient reported that she was diagnosed with bipolar disorder, denied history of being admitted to the psychiatric inpatient unit. The patient has histo ry of impulsive, irritable mood. The patient also said that her mind is racing, multitasking. The p atient reported that she was on Topamax in the past, Klonopin as well as patient was going to a metha done clinic, but was fired from there because she was using drugs. The patient reported doing well o n Neurontin as well as Klonopin. The patient denied hearing voices, denied seeing things, denied par anoid ideations. The patient denied history of trying to commit suicide in the past. The patient h as 1 detox admission at [facility] and it was 07/19. VITAL SIGNS: This field underwriter reviewed vital signs. Temperature 99.1, pulse is 105, blood pressure 107/7 0, respirations 20, oxygen saturation 97. MEDICATIONS: Reviewed. The patient is on Tylenol, Azactam, also Klonopin will be started 0.5 mg twi ce a day, Catapres 1 mg twice a day will be started for withdrawal symptoms. The patient is on Benad ryl, Lovenox, Neurontin 300 mg 3 times a day will be started, Dilaudid. The patient also will be sta rted on 25 mg of Seroquel and vancomycin. LABORATORY DATA: Reviewed. WBC cells were 12.6 at the time of admission and 10.2 today. Chemistry reviewed. Urinalysis showed some leukocyte esterase positive serology. The patient has history of h epatitis C. MENTAL STATUS EXAMINATION: The patient presented to be alert, somewhat pleasant, superficially coope rative, intermittent eye contact. Speech was normal rate, tone, quality, and quantity. Mood describ ed as "I feel anxious". Affect was tearful and mood congruent. Thought process was coherent and goa l directed. Thought content: The patient denied visual, auditory, tactile hallucinations. Denied p aranoid ideation. The patient denied thoughts of harming herself or others, denied intent or plan. Insight and judgment are fair, but in regards of substances abuse is limited, but is improving. Impu lses are well predictable. IMPRESSION: Substance induced mood disorder, rule out bipolar spectrum disorder. The patient has po lysubstance abuse and dependence, rule out mood disorder due to general medical condition. The patie nt is status post cholecystectomy post-surgery on her right hip. PLAN: Continue current management. Continue current medications. Neurontin was started. Klonopin p.r.n. will be started. Seroquel as a mood stabilizer started and continue pain management. Should you have any questions, give me a call back. We will follow up and advise accordingly. Emmie Bull MD cc: [id number] TT: 07/31/2016 18:52:14 Confirmation # [id number] Dictation # [id number] an
[2016-07-31 19:38] LABS: URINE BILIRUBIN NEGATIVE (NEGATIVE); URINE BLOOD NEGATIVE (NEGATIVE); URINE GLUCOSE (UA) NEGATIVE (NEGATIVE); URINE KETONE NEGATIVE (NEGATIVE); URINE LEUKOCYTE ESTERASE NEGATIVE Leu/uL (NEGATIVE); URINE PROTEIN NEGATIVE mg/dL (<30 mg/dL); URINE UROBILINOGEN 0.2 E.U./dL (<1 E.U./dL)
[2016-07-31 19:39] LABS: URINE APPEARANCE CLEAR (CLEAR); URINE COLOR YELLOW (YELLOW)
[2016-07-31 19:49] LABS: VENOUS BLOOD PH 7.43 (7.32-7.43)
[2016-08-01] MEDS: HYDROmorphone 0.5 mg/0.5 ml ISec IVP PRN ×4 (00:52→20:37)
[2016-08-01] MEDS: Aztreonam 1 Gm in NS 100mL 100 ML IVPB SCH ×3 (05:13→22:08)
[2016-08-01] MEDS: Sodium Chloride 0.9% 1,000 ML IV SCH (05:14)
--- NOTE | 2016-08-01 08:14 | RAD ---
HISTORY: fever unknown origin COMPARISON: 07/29/2016 FINDINGS: LUNGS: The lungs are clear. PLEURA: No significant pleural effusion identified, no pneumothorax apparent. CARDIOVASCULAR: Normal. OSSEOUS STRUCTURES: No significant abnormalities. VISUALIZED UPPER ABDOMEN: Normal. OTHER FINDINGS: None. IMPRESSION: No active pulmonary disease.
--- NOTE | 2016-08-01 09:57 | PN ---
DATE: 08/01/2016 The patient was followed up today. The patient reported that she slept better on small dose of Seroq uel. The patient also reported that her anxiety is now under control. She tolerates Neurontin as we ll as Klonopin well. The patient has future plans to go inpatient rehab for her broken hip. The pat carlota does not want to go to inpatient rehab for her addiction. The patient wants to go to [facility]. This investigative writer educated patient about [facility], mental illness plus chemical addiction. The patient said that she is considering to go there. The patient was educated in that case scenario, p atient will be not accepted on any benzodiazepines. The patient is aware of that. The patient repor laxmi her mood to be better. Affect was constricted and irritable. Denied hearing voices, denied seei ng things, denied paranoid ideation. The patient does not present to be psychotic. Collaterals were obtained from the nursing staff. The patient is disrespectful, demanding, throwing things on the fl oor. The patient has short temper, but there is no physical aggression, but patient is verbally abus roel towards staff. MEDICATIONS: Reviewed. Tylenol, aztreonam, Klonopin 0.5 mg twice a day. The patient is on Catapres 0.1 mg twice a day as needed, Lovenox, Neurontin 300 mg 3 times a day scheduled, Dilaudid 0.5 mg IV push q. 4 hours as needed, Seroquel 25 mg at the nighttime, sodium and vancomycin. LABORATORIES: Reviewed. Most recent was from . The patient is in physical therapy. The patient needs to go to acute rehabilitation. MENTAL STATUS EXAMINATION: As this investigative writer described above, patient presented to be alert, intermitte nt eye contact. Speech was normal rate, tone, quality, and quantity. Mood described "I feel better. " Affect was irritable. Thought process was coherent, goal directed. Thought content: The patient denied visual, auditory, tactile hallucinations. Denied paranoid ideation. The patient does not pr esent to be psychotic. Insight and judgment improving. Impulses are better controlled, but still un predictable. IMPRESSION: History of polysubstance abuse and dependence, opioid addiction, self-reported history o f bipolar disorder. PLAN: Continue current management. Klonopin for anxiety and mood stabilization and for alcoho l cravings. The patient also might benefit from naltrexone, but she needs to be 10 days off any opio ids. The patient wants to go to AA meeting, NA meeting. The patient wants to go to [facility], bu t on [facility], patient will be not accepted on any benzodiazepines. The patient is aware of that . Meanwhile, continue current management, physical therapy. Will follow up on this patient every ot her day. The patient also has antisocial traits and borderline personality. Thank you very much for letting me participate in care of your patient. Should you have any question s, give me a call back. Emmie Bull MD cc: [phone] TT: 08/01/2016 09:56:53 Confirmation # [id number] Dictation # [id number] en
--- NOTE | 2016-08-01 10:09 | CON ---
DATE: 07/29/2016 REASON FOR CONSULTATION: Right femoral neck fracture of the hip. HISTORY OF PRESENT ILLNESS: A 25-year-old female, IV drug abuser and cocaine, heroin, presented to Emergency Room with complaint of right hip pain. The patient states she was walking on the sidewalk and fell, had immediate pain and inability to ambulate on the right side. Initial x-rays confirmed a full displaced femoral neck fracture. I was consulted for further evaluation and recommendations. PHYSICAL EXAMINATION EXTREMITIES: Right lower extremity is shortened and externally rotated, tender to palpation over the groin area. The patient has difficulty moving her hip due to pain. Mild swelling. Compartments ar e soft. No tenderness over the knee, ankle joint. Neurologically intact. X-rays of the hip were seen and reviewed, show a displaced femoral neck fracture. ASSESSMENT: Right hip displaced femoral neck fracture. PLAN: I discussed the above findings with the patient and her dad. Due to the severity of the injur y, I recommended emergency surgery for fracture fixation. We discussed the risk of avascular necrosi s, nonhealing, malunion, nonunion, potential need for additional surgery in the future, potential art hroplasty and hip replacement. The patient was taken emergently to the operating room for reduction and fixation. Mo Quinteros M.D. cc: [id number] TT: 08/01/2016 10:08:38 Confirmation # [id number] Dictation # [id number] en
--- NOTE | 2016-08-01 10:14 | OP ---
PROCEDURE DATE: 07/29/2016 SURGEON: Mo Quinteros MD PREOPERATIVE DIAGNOSIS: Displaced right femoral neck fracture. POSTOPERATIVE DIAGNOSIS: Displaced right femoral neck fracture. PROCEDURES: Closed reduction of femoral neck with cannulated screw pinning. ESTIMATED BLOOD LOSS: 50 mL. ANESTHESIA: General. SPECIMENS: None. DISPOSITION: Stable to recovery room. INDICATIONS: This is a 25-year-old female who is an IV drug abuser who sustained a slip and fall with displaced right femoral neck fracture. She was taken emergently to the operating room for reduction and fixation. Risks of surgery were explained to the patient including malunion, nonunion, AVN, potential need for additional surgery in the future, vessel, tendon or nerve injury, chronic pain. The patient understood the above risks and elected to proceed. Informed consent was obtained. The patient was taken to the operating room and placed supine on the operating traction table. After general anesthesia was given and prophylactic antibiotics, traction was applied to the right lower extremity. Closed reduction was performed with traction and internal rotation of the hip under fluoroscopy. Anatomic reduction was achieved and checked in both AP and lateral planes. Next, the right lower extremity was prepped and draped in standard surgical fashion. A lateral incision proximal to the femoral neck was made. Incision was carried down to the IT band. The IT band was incised, after which the vastus lateralis muscle was incised down to the cortex. The cortex was identified. Then, Lashon wires were placed into the femoral neck in an inverted triangle configuration. Again, reduction was held in place and confirmed. We then used a drill to open the cortex over all 3 wires. After this, the appropriate length compression screws were selected and placed over the guidewires. The guidewires were removed. The construct was stable and again anatomic reduction was achieved and confirmed with fluoroscopy. No joint was penetrated. After this, a Hernandez elevator was placed into the capsule, deep to the capsule to decompress the joint. We then irrigated the wound copiously. The wound was then closed with 1-0 Vicryls for deep layers, followed by 2-0, followed by mitra. The patient tolerated the procedure well, was taken off traction and returned to recovery room in excellent condition. Mo Quinteros M.D. cc: [id number] TT: 08/01/2016 10:14:07 en MTDD
--- NOTE | 2016-08-01 11:15 | CP.PCM.PN ---
Subjective - Date & Time of Evaluation Date of Evaluation: 08/01/16 Time of Evaluation: 10:00 - Subjective Subjective: Surgery Progress Note for Dr. Quinteros Patient seen and examined at bedside. Overnight patient had a fever of 102.3 and was given Tylenol. Patient states her pain has improved. Patient still complaints of sneezing and shaking which she attributes to heroin withdrawal. Patient reports to be using trapeze to exercise and incentive spirometer. Denies headache, weakness, shortness of breath, chest pain, nausea, vomiting, or urinary complaints. Objective - Vital Signs/Intake and Output Vital Signs (last 24 hours): Temp Pulse Resp BP Pulse Ox 102.3 F H 121 H 24 103/64 98 08/01/16 07:30 08/01/16 07:30 08/01/16 07:30 08/01/16 07:30 08/01/16 07:30 Intake and Output: 08/01/16 08/01/16 06:59 18:59 Intake Total 240 2450 Balance 240 2450 - Medications Medications: Current Medications Acetaminophen (Tylenol 325mg Tab) 650 mg PO Q4 PRN PRN Reason: Fever >100.4 F Last Admin: 08/01/16 05:13 Dose: 650 mg Clonazepam (Klonopin) 0.5 mg PO AMHS GARY PRN Reason: Protocol Last Admin: 07/31/16 21:39 Dose: 0.5 mg Clonidine HCl (Catapres) 0.1 mg PO BID PRN PRN Reason: withdrawals, hold if BP <100/9 Enoxaparin Sodium (Lovenox) 40 mg SC DAILY GARY PRN Reason: Protocol Last Admin: 07/31/16 10:53 Dose: 40 mg Gabapentin (Neurontin) 300 mg PO TID GARY PRN Reason: Protocol Last Admin: 07/31/16 18:55 Dose: 300 mg Hydromorphone HCl (Dilaudid) 0.5 mg IVP Q4H PRN PRN Reason: Pain, moderate (4-7) Last Admin: 08/01/16 04:50 Dose: 0.5 mg Sodium Chloride (Sodium Chloride 0.9%) 1,000 mls @ 100 mls/hr IV .Q10H GARY Last Admin: 08/01/16 05:14 Dose: 100 mls/hr Aztreonam (Azactam 1 Gm) 100 mls @ 100 mls/hr IVPB Q8 GARY PRN Reason: Protocol Stop: 08/06/16 06:01 Last Admin: 08/01/16 05:13 Dose: 100 mls/hr Vancomycin HCl (Vancomycin 1gm) 1 gm in 250 mls @ 167 mls/hr IVPB Q12H GARY PRN Reason: Protocol Last Admin: 07/31/16 23:40 Dose: 167 mls/hr Quetiapine Fumarate (Seroquel) 25 mg PO HS GARY PRN Reason: Protocol Last Admin: 07/31/16 21:40 Dose: 25 mg - Labs Labs: 07/30/16 07:30 07/30/16 07:30 PT 10.6 Seconds (9.9-11.8) 07/28/16 22:55 INR 0.98 (0.93-1.08) 07/28/16 22:55 APTT 23.7 Seconds (23.7-30.8) 07/28/16 22:55 - Constitutional Appears: Non-toxic, No Acute Distress - Head Exam Head Exam: ATRAUMATIC, NORMAL INSPECTION, NORMOCEPHALIC - Eye Exam Eye Exam: EOMI, Normal appearance - ENT Exam ENT Exam: Mucous Membranes Moist - Neck Exam Neck Exam: Normal Inspection - Respiratory Exam Respiratory Exam: Clear to Ausculation Bilateral, NORMAL BREATHING PATTERN. absent: Respiratory Distress - Cardiovascular Exam Cardiovascular Exam: REGULAR RHYTHM, +S1, +S2. absent: Murmur - GI/Abdominal Exam GI & Abdominal Exam: Soft, Normal Bowel Sounds. absent: Tenderness - Extremities Exam Extremities Exam: Normal Capillary Refill. absent: Full ROM Additional comments: Right hip limited range of motion due to pain, wound dressing clean, dry, intact. No sensory deficit appreciated - Neurological Exam Neurological Exam: Alert, Awake, Oriented x3 - Psychiatric Exam Psychiatric exam: Normal Affect, Normal Mood - Skin Skin Exam: Dry, Normal Color, Warm Assessment and Plan - Assessment and Plan (Free Text) Assessment: 25 year old female with past medical history of thrombocytopenia, depression, suicidal ideation, hep C, IV heroin and cocaine abuse was found to have right surgical neck fracture of femur after having a fall at home. Patient is s/p right ORIF with pinning POD# 3 Plan: Right femur surgical neck fracture -R ORIF with pinning POD #3 -Pending rehab placement ([facility]) due to history of substance abuse -At least 2 months non weight bearing on right hip -Follow up with ortho within 2 weeks of discharge -C/w non weight bearing, Trapeze for upper body strength, incentive spirometry -Pain management per medical team -Lovenox 40mg daily D/w with attending
[2016-08-01] MEDS: Vancomycin 1gm in NS 250ml 1 GM/250 ML BAG IVPB SCH (11:45)
[2016-08-01] MEDS: Enoxaparin 40 mg Syringe SC SCH (11:45)
--- NOTE | 2016-08-01 19:00 | CP.PCM.PN ---
<Yong Villarreal - Last Filed: 08/01/16 18:57> Subjective - Date & Time of Evaluation Date of Evaluation: 08/01/16 Time of Evaluation: 09:05 - Subjective Subjective: Internal Medicine Progress Note for Dr. Lemos Patient seen and examined at bedside. Today is hospital day 4. POD #3 for R hip ORIF with fixation. Overnight, continued to have a fever despite antibiotics and tylenol for temps; no other acute events. Still complaining of pain, but improved compared to prior days. Denies chest pain, shortness of breath, focal weakness, emesis. Complains only of pain and some nausea 2/2 pain , but tolerating diet well (advanced to regular diet yesterday). Objective - Vital Signs/Intake and Output Vital Signs (last 24 hours): Temp Pulse Resp BP Pulse Ox 98.3 F 124 H 20 107/72 100 08/01/16 16:00 08/01/16 17:27 08/01/16 16:00 08/01/16 17:27 08/01/16 16:00 Intake and Output: 08/01/16 08/01/16 06:59 18:59 Intake Total 240 2990 Output Total 500 Balance 240 2490 - Medications Medications: Current Medications Acetaminophen (Tylenol 325mg Tab) 650 mg PO Q4 PRN PRN Reason: Fever >100.4 F Last Admin: 08/01/16 05:13 Dose: 650 mg Clonazepam (Klonopin) 0.5 mg PO AMHS GARY PRN Reason: Protocol Last Admin: 08/01/16 11:45 Dose: 0.5 mg Clonidine HCl (Catapres) 0.1 mg PO BID PRN PRN Reason: withdrawals, hold if BP <100/9 Last Admin: 08/01/16 17:27 Dose: 0.1 mg Enoxaparin Sodium (Lovenox) 40 mg SC DAILY GARY PRN Reason: Protocol Last Admin: 08/01/16 11:45 Dose: 40 mg Gabapentin (Neurontin) 300 mg PO TID GARY PRN Reason: Protocol Last Admin: 08/01/16 17:32 Dose: 300 mg Hydromorphone HCl (Dilaudid) 0.5 mg IVP Q4H PRN PRN Reason: Pain, moderate (4-7) Last Admin: 08/01/16 11:45 Dose: 0.5 mg Sodium Chloride (Sodium Chloride 0.9%) 1,000 mls @ 100 mls/hr IV .Q10H [facility] Last Admin: 08/01/16 05:14 Dose: 100 mls/hr Aztreonam (Azactam 1 Gm) 100 mls @ 100 mls/hr IVPB Q8 GARY PRN Reason: Protocol Stop: 08/06/16 06:01 Last Admin: 08/01/16 15:24 Dose: Not Given Vancomycin HCl (Vancomycin 1gm) 1 gm in 250 mls @ 167 mls/hr IVPB Q12H GARY PRN Reason: Protocol Last Admin: 08/01/16 11:45 Dose: Not Given Quetiapine Fumarate (Seroquel) 25 mg PO HS GARY PRN Reason: Protocol Last Admin: 07/31/16 21:40 Dose: 25 mg - Labs Labs: 07/30/16 07:30 07/30/16 07:30 PT 10.6 Seconds (9.9-11.8) 07/28/16 22:55 INR 0.98 (0.93-1.08) 07/28/16 22:55 APTT 23.7 Seconds (23.7-30.8) 07/28/16 22:55 - Additional Findings Additional findings: - Constitutional Appears: Non-toxic, No Acute Distress, Chronically Ill - Head Exam Head Exam: ATRAUMATIC, NORMAL INSPECTION, NORMOCEPHALIC - Eye Exam Eye Exam: EOMI, Normal appearance. absent: Conjunctival injection, Scleral icterus Pupil Exam: absent: Irregular, Unequal - ENT Exam ENT Exam: Mucous Membranes Moist - Neck Exam Neck Exam: Full ROM - Respiratory Exam Respiratory Exam: Clear to Ausculation Bilateral, NORMAL BREATHING PATTERN. absent: Rales, Rhonchi, Wheezes - Cardiovascular Exam Cardiovascular Exam: REGULAR RHYTHM & RATE, +S1, +S2. absent: Tachycardia, Bradycardia, Clicks, Irregular Rhythm, JVD, +S4, Murmur - GI/Abdominal Exam GI & Abdominal Exam: Soft, Normal Bowel Sounds. absent: Distended, Firm, Rigid , Diminished Bowel Sounds, Hyperactive Bowel Sounds, Hypoactive Bowel Sounds - Extremities Exam Painful R hip, intentionally limiting RLE ROM due to pain RLE surgical site bandaged, not actively bleeding/oozing through bandaging, acutely tender to palpation at bandaged site but not around it, no gross erythema or swelling at surgical site LLE movement grossly intact RLE foot and toe movement grossly intact - Neurological Exam Neurological Exam: Alert, Awake, Oriented x3 - Psychiatric Exam Psychiatric exam: Anxious, Normal Affect - Skin Skin Exam: Dry, Intact (except as noted in extremities exam), Normal Color, Warm Assessment and Plan - Assessment and Plan (Free Text) Assessment: This is a 25 yo F with PMH of thrombocytopenia, depression, suicidal ideation, hep C, IV heroin and cocaine abuse who presented to [facility] for fall resulting in R-hip fracture. She is POD #3 for ORIF with fixation. Plan: 1) Right femur surgical neck fracture -POD #3 for ORIF with fixation -Ortho (Dr. Quinteros) following, appreciate all recs; Non-weight bearing for 2 months, trapeze for strengthening, incentive spirometry, f/u as outpt 2 weeks after discharge -post procedure X-ray reveals anatomic alignment with [address] -Dilaudid 0.5mg IV Q4h PRN for pain -IVF NS 100ml/hr -Due to persistent pain and fevers, will obtain LE Duplex to r/o DVT, but unlikely given daily Lovenox since POD#0 -PT/OT recs acute or sub-acute rehab, pending placement as per SW/CM; continue OOB to chair as tolerated, continue non-weight bearing as per Ortho 2) Leukocytosis with fever -Tmax 103F, overnight max 103F; no current WBC count as patient refusing labs -Likely 2/2 stress + post-surgery vs infectious etiology vs 2/2 withdrawal -ID consulted, appreciate all recs; Vanco and Aztreonam as per ID, suspect component from withdrawal as well, rec consulting Psych -UA showed trace LE; Urine culture negative at 48 hours -Blood cultures negative x48 hours; ID ordered repeat cultures but patient refusing -Continue to monitor 3) History Hep C -Positive hep c antibody in 07/20/16, not on medication -Outpatient Management 4) History of anxiety, depression, polysubstance abuse -Psych consulted, appreciate their recs -Pt complaining of anxiety, but hx of drug abuse and seeking behavior, will defer to psych -Klonopin AMHS as per Psych Dispo: Med/Surg post ORIF with fixation of R hip (POD#3), continuing abx and tx for fevers/leukocytosis, pending d/c to [facility] as per PT FEN: Regular diet Access: Peripheral IV (given hx of abuse, avoid PICC lines or central access) Consults: Psych, ID, Ortho Ppx: Lovenox for DVT, Protonix for GI Patient seen, reviewed, and discussed with attending, Dr. Lemos. <Kyung Lemos - Last Filed: 08/01/16 22:29> Objective - Vital Signs/Intake and Output Vital Signs (last 24 hours): Temp Pulse Resp BP Pulse Ox 98.3 F 124 H 20 107/72 100 08/01/16 16:00 08/01/16 17:27 08/01/16 16:00 08/01/16 17:27 08/01/16 16:00 Intake and Output: 08/01/16 08/02/16 18:59 06:59 Intake Total 2990 Output Total 500 Balance 2490 - Medications Medications: Current Medications Acetaminophen (Tylenol 325mg Tab) 650 mg PO Q4 PRN PRN Reason: Fever >100.4 F Last Admin: 08/01/16 05:13 Dose: 650 mg Clonazepam (Klonopin) 0.5 mg PO AMHS GARY PRN Reason: Protocol Last Admin: 08/01/16 22:09 Dose: 0.5 mg Clonidine HCl (Catapres) 0.1 mg PO BID PRN PRN Reason: withdrawals, hold if BP <100/9 Last Admin: 08/01/16 17:27 Dose: 0.1 mg Enoxaparin Sodium (Lovenox) 40 mg SC DAILY GARY PRN Reason: Protocol Last Admin: 08/01/16 11:45 Dose: 40 mg Gabapentin (Neurontin) 300 mg PO TID GARY PRN Reason: Protocol Last Admin: 08/01/16 17:32 Dose: 300 mg Hydromorphone HCl (Dilaudid) 0.5 mg IVP Q4H PRN PRN Reason: Pain, moderate (4-7) Last Admin: 08/01/16 20:37 Dose: 0.5 mg Sodium Chloride (Sodium Chloride 0.9%) 1,000 mls @ 100 mls/hr IV .Q10H GARY Last Admin: 08/01/16 05:14 Dose: 100 mls/hr Aztreonam (Azactam 1 Gm) 100 mls @ 100 mls/hr IVPB Q8 GARY PRN Reason: Protocol Stop: 08/06/16 06:01 Last Admin: 08/01/16 22:08 Dose: 100 mls/hr Vancomycin HCl (Vancomycin 1gm) 1 gm in 250 mls @ 167 mls/hr IVPB Q12H GARY PRN Reason: Protocol Last Admin: 08/01/16 11:45 Dose: Not Given Quetiapine Fumarate (Seroquel) 25 mg PO HS GARY PRN Reason: Protocol Last Admin: 08/01/16 22:08 Dose: 25 mg - Labs Labs: 07/30/16 07:30 07/30/16 07:30 PT 10.6 Seconds (9.9-11.8) 07/28/16 22:55 INR 0.98 (0.93-1.08) 07/28/16 22:55 APTT 23.7 Seconds (23.7-30.8) 07/28/16 22:55 Attending/Attestation - Attestation I have personally seen and examined this patient.: Yes I have fully participated in the care of the patient.: Yes I have reviewed all pertinent clinical information, including history, physical exam and plan: Yes Notes (Text): 08/01/16 22:28 25 year old female with past medical history of hepatitis C and substance abuse including IVDA and cocaine who presented s/p fall found to have right femur surgical neck fracture. She was seen by orthopedics and is now s/p ORIF POD # 3. PT is following and has recommended acute rehab. Patient continues to be having fevers despite IV antibiotics. ID is following the patient. Cultures are negative to date. LE doppler is ordered. She was counselled on risks of continued substance abuse. Psychiatry evaluation was appreciated. Elevated LFTs likely secondary to history of hepatitis C. Recommended close outpatient follow up at [facility] hepatitis clinic. Kyung Lemos MD Hospitalist.
--- NOTE | 2016-08-01 20:32 | PN ---
DATE: 08/01/2016 The patient is in bed in no acute distress. The patient was seen early this morning. He did have a temperature of 102. The patient was complaining of generalized aches and pains. PHYSICAL EXAMINATION: VITAL SIGNS: Temperature of 102.3, heart rate of 120, respiratory rate 24, blood pressure 103/70. HEENT: Unremarkable. NECK: Supple. LUNGS: Have decreased breath sounds. HEART: Normal S1, S2. ABDOMEN: Soft, nontender. LABORATORY DATA: Reveals a white count of 10,000, hemoglobin of 217. Chemistries are noted. BUN of 10, creatinine of 0.6. Procalcitonin 0.13. Urinalysis is noted. Serology, HIV is negative. Hepat itis profile is negative. Microbiology from the 5th, blood cultures no growth at 3 days. Urine cult ure is negative. The patient had lower extremity ultrasound, the results are pending. Dr. Willem benjamin' progress note is reviewed. Dr. Goodwin's note is also reviewed. ASSESSMENT AND PLAN: A 25-year-old female with systemic inflammatory response syndrome, drug withdra wals, culture is negative, status post right hip fracture and open reduction and internal fixation, p ostop day #3, on vancomycin, Azactam day #3. Negative procalcitonin, negative blood cultures, negati ve urine cultures, chest x-ray negative. Had received vancomycin and aztreonam. Currently on aztreo nam and vancomycin. We will check on the final culture results and make further recommendations. Stephane Henriquez MD cc: [id number] TT: 08/01/2016 20:32:12 Confirmation # [id number] Dictation # [id number] heriberto
[2016-08-02] MEDS: Vancomycin 1gm in NS 250ml 1 GM/250 ML BAG IVPB SCH ×2 (00:06→11:55)
[2016-08-02] MEDS: HYDROmorphone 0.5 mg/0.5 ml ISec IVP PRN ×4 (00:44→13:04)
[2016-08-02] MEDS: Sodium Chloride 0.9% 1,000 ML IV SCH (04:02)
[2016-08-02] MEDS: Aztreonam 1 Gm in NS 100mL 100 ML IVPB SCH ×2 (05:57→13:42)
[2016-08-02 08:17] LABS: ADD MANUAL DIFF? NO
[2016-08-02 08:20] LABS: BASO # 0.02 K/mm3 (0.0-2.0); BASO % 0.4 % (0.0-3.0); EOS # 0.1 (0.0-0.7); EOS % 1.6 % (1.5-5.0); GRAN # 3.14 (1.4-6.5); GRAN % 57.2 % (50.0-68.0); LYMPH # 1.8 (1.2-3.4); MEAN CELL VOLUME 85.6 fL (80.0-105.0); MEAN CORPUSCULAR HEMOGLOBIN 27.5 pg (25.0-35.0); MEAN CORPUSCULAR HGB CONC 32.1 g/dl (31.0-37.0); MONO # 0.4 (0.1-0.6); MONO % 7.8 % (1.0-6.0); PLATELET COUNT 209 10^3/uL (120.0-450.0); RED CELL DISTRIBUTION WIDTH 12.7 % (11.5-14.5); WHITE BLOOD COUNT 5.5 10^3/ul (4.5-11.0)
[2016-08-02 08:43] LABS: BLOOD UREA NITROGEN 16 mg/dL (7-21); CALCIUM 8.5 mg/dL (8.4-10.5); CARBON DIOXIDE 28 mmol/L (21-33); CHLORIDE 105 mmol/L (95-110); GFR AFRICAN-AMERICAN > 60; GLUCOSE,RANDOM 107 mg/dL (70-110); MAGNESIUM 1.8 mg/dL (1.7-2.2); PHOSPHOROUS 3.2 mg/dL (2.5-4.5); POTASSIUM 3.7 mmol/L (3.6-5.0); SODIUM 140 mmol/L (132-148)
[2016-08-02] MEDS: Enoxaparin 40 mg Syringe SC SCH (09:06)
[2016-08-02] MEDS ORDERED: HYDROmorphone 0.5 mg/0.5 ml ISec IVP PRN (14:48)
--- NOTE | 2016-08-02 16:07 | CP.PCM.PN ---
Addendum entered and electronically signed by Yong Villarreal DO 08/02/16 16:44: As per Nursing, pt found to have a bottle of pills at bedside not provided by hospital, reports that it is her father's Neurontin that he forgot to take with him. Bottle secured by nursing, sent to pharmacy. Patient instructed not to take outside medications without having them checked and cleared by pharmacy. Patient reporting anxiety and requesting medications shortly thereafter. Original Note: <Yong Villarreal - Last Filed: 08/02/16 15:59> Subjective - Date & Time of Evaluation Date of Evaluation: 08/02/16 Time of Evaluation: 07:50 - Subjective Subjective: Internal Medicine Progress Note for Dr. Lemos Patient seen and examined at bedside. Today is hospital day 5. POD #4 for R hip ORIF with fixation. Overnight, continued to have a fever despite antibiotics and tylenol for temps; no other acute events. Still complaining of pain, but improved compared to prior days. Denies chest pain, shortness of breath, focal weakness, emesis. Objective - Vital Signs/Intake and Output Vital Signs (last 24 hours): Temp Pulse Resp BP Pulse Ox 100.3 F H 98 H 20 137/100 H 98 08/02/16 08:22 08/02/16 08:22 08/02/16 08:22 08/02/16 08:22 08/02/16 08:22 Intake and Output: 08/02/16 08/02/16 06:59 18:59 Intake Total 3140 Balance 3140 - Medications Medications: Current Medications Acetaminophen (Tylenol 325mg Tab) 650 mg PO Q4 PRN PRN Reason: Fever >100.4 F Last Admin: 08/02/16 05:59 Dose: 650 mg Clonazepam (Klonopin) 0.5 mg PO AMHS GARY PRN Reason: Protocol Last Admin: 08/02/16 09:02 Dose: 0.5 mg Clonidine HCl (Catapres) 0.1 mg PO BID PRN PRN Reason: withdrawals, hold if BP <100/9 Last Admin: 08/01/16 17:27 Dose: 0.1 mg Enoxaparin Sodium (Lovenox) 40 mg SC DAILY GARY PRN Reason: Protocol Last Admin: 08/02/16 09:06 Dose: Not Given Gabapentin (Neurontin) 300 mg PO TID GARY PRN Reason: Protocol Last Admin: 08/02/16 14:55 Dose: 300 mg Hydromorphone HCl (Dilaudid) 0.5 mg IVP Q6H PRN PRN Reason: Pain, moderate (4-7) Sodium Chloride (Sodium Chloride 0.9%) 1,000 mls @ 100 mls/hr IV .Q10H [facility] Last Admin: 08/02/16 04:02 Dose: 100 mls/hr Aztreonam (Azactam 1 Gm) 100 mls @ 100 mls/hr IVPB Q8 GARY PRN Reason: Protocol Stop: 08/06/16 06:01 Last Admin: 08/02/16 13:42 Dose: 100 mls/hr Vancomycin HCl (Vancomycin 1gm) 1 gm in 250 mls @ 167 mls/hr IVPB Q12H GARY PRN Reason: Protocol Last Admin: 08/02/16 11:55 Dose: Not Given Quetiapine Fumarate (Seroquel) 25 mg PO HS GARY PRN Reason: Protocol Last Admin: 08/01/16 22:08 Dose: 25 mg - Labs Labs: 08/02/16 07:45 08/02/16 07:45 PT 10.6 Seconds (9.9-11.8) 07/28/16 22:55 INR 0.98 (0.93-1.08) 07/28/16 22:55 APTT 23.7 Seconds (23.7-30.8) 07/28/16 22:55 - Additional Findings Additional findings: - Constitutional Non-toxic, No Acute Distress, Chronically Ill - Head Exam ATRAUMATIC, NORMAL INSPECTION, NORMOCEPHALIC - Eye Exam EOMI, Normal appearance. absent: Conjunctival injection, Scleral icterus, Unequal/Irregular Pupils - ENT Exam Mucous Membranes Moist - Neck Exam Full ROM - Respiratory Exam Clear to Ausculation Bilateral, NORMAL BREATHING PATTERN. absent: Rales, Rhonchi, Wheezes - Cardiovascular Exam REGULAR RHYTHM & RATE, +S1, +S2. absent: Tachycardia, Bradycardia, Clicks, Irregular Rhythm, JVD, +S4, Murmur - GI/Abdominal Exam Soft, Normal Bowel Sounds. absent: Distended, Firm, Rigid, Diminished Bowel Sounds, Hyperactive Bowel Sounds, Hypoactive Bowel Sounds - Extremities Exam Painful R hip, intentionally limiting RLE ROM due to pain RLE surgical site bandaged, not actively bleeding/oozing through bandaging, less tender to palpation at bandaged site, no gross erythema or swelling at surgical site LLE movement grossly intact RLE foot and toe movement grossly intact - Neurological Exam Alert, Awake, Oriented x3 - Psychiatric Exam Anxious, Normal Affect - Skin Dry, Intact (except as noted in extremities exam), Normal Color, Warm Assessment and Plan - Assessment and Plan (Free Text) Assessment: This is a 25 yo F with PMH of thrombocytopenia, depression, suicidal ideation, hep C, IV heroin and cocaine abuse who presented to [facility] for fall resulting in R-hip fracture. She is POD #4 for ORIF with fixation. Pending placement for Acute rehab. Plan: 1) Right femur surgical neck fracture -POD #4 for ORIF with fixation -Ortho (Dr. Quinteros) following, appreciate all recs; Non-weight bearing for 2 months, trapeze for strengthening, incentive spirometry, f/u as outpt 2 weeks after discharge -post procedure X-ray reveals anatomic alignment with [address] -Dilaudid weaned to 0.5mg IV Q6h PRN for pain -LE duplex read pending, continue Lovenox -PT/OT recs acute or sub-acute rehab, pending placement as per SW/CM; continue OOB to chair as tolerated, continue non-weight bearing as per Ortho 2) Leukocytosis with fever -Tmax 103F, overnight max 100.3F; WBCs 5.5 today -Likely 2/2 stress + post-surgery vs infectious etiology vs 2/2 withdrawal -ID consulted, appreciate all recs; Vanco and Aztreonam as per ID, suspect component from withdrawal as well, pending final read on cultures -UA showed trace LE; Urine culture negative at 48 hours -Blood cultures negative x72 hours; ID ordered repeat cultures but patient refusing -Procal negative -Continue to monitor 3) History Hep C -Positive hep c antibody in 07/20/16, not on medication -Outpatient Management 4) History of anxiety, depression, polysubstance abuse -Psych consulted, appreciate their recs -Pt complaining of anxiety, but hx of drug abuse and seeking behavior, will defer to psych -Klonopin AMHS as per Psych Dispo: Med/Surg post ORIF with fixation of R hip (POD#4), continuing abx and tx for fevers, pending d/c to [facility] as per PT FEN: Regular diet Access: Peripheral IV (given hx of abuse, avoid PICC lines or central access) Consults: Psych, ID, Ortho Ppx: Lovenox for DVT, Protonix for GI Patient seen, reviewed, and discussed with attending, Dr. Lemos. <Kyung Lemos - Last Filed: 08/02/16 16:50> Objective - Vital Signs/Intake and Output Vital Signs (last 24 hours): Temp Pulse Resp BP Pulse Ox 99 F 110 H 18 110/72 100 08/02/16 16:15 08/02/16 16:15 08/02/16 16:15 08/02/16 16:15 08/02/16 16:15 Intake and Output: 08/02/16 08/02/16 06:59 18:59 Intake Total 3140 Balance 3140 - Medications Medications: Current Medications Acetaminophen (Tylenol 325mg Tab) 650 mg PO Q4 PRN PRN Reason: Fever >100.4 F Last Admin: 08/02/16 05:59 Dose: 650 mg Clonazepam (Klonopin) 0.5 mg PO AMHS GARY PRN Reason: Protocol Last Admin: 08/02/16 09:02 Dose: 0.5 mg Clonidine HCl (Catapres) 0.1 mg PO BID PRN PRN Reason: withdrawals, hold if BP <100/9 Last Admin: 08/01/16 17:27 Dose: 0.1 mg Enoxaparin Sodium (Lovenox) 40 mg SC DAILY GARY PRN Reason: Protocol Last Admin: 08/02/16 09:06 Dose: Not Given Gabapentin (Neurontin) 300 mg PO TID GARY PRN Reason: Protocol Last Admin: 08/02/16 14:55 Dose: 300 mg Hydromorphone HCl (Dilaudid) 0.5 mg IVP Q6H PRN PRN Reason: Pain, moderate (4-7) Sodium Chloride (Sodium Chloride 0.9%) 1,000 mls @ 100 mls/hr IV .Q10H GARY Last Admin: 08/02/16 04:02 Dose: 100 mls/hr Quetiapine Fumarate (Seroquel) 25 mg PO HS GARY PRN Reason: Protocol Last Admin: 08/01/16 22:08 Dose: 25 mg - Labs Labs: 08/02/16 07:45 08/02/16 07:45 PT 10.6 Seconds (9.9-11.8) 07/28/16 22:55 INR 0.98 (0.93-1.08) 07/28/16 22:55 APTT 23.7 Seconds (23.7-30.8) 07/28/16 22:55 Attending/Attestation - Attestation I have personally seen and examined this patient.: Yes I have fully participated in the care of the patient.: Yes I have reviewed all pertinent clinical information, including history, physical exam and plan: Yes Notes (Text): 08/02/16 16:49 25 year old female with past medical history of hepatitis C and substance abuse including IVDA and cocaine who presented s/p fall found to have right femur surgical neck fracture. She was seen by orthopedics and is now s/p ORIF POD # 4. 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 Fever trend is coming down and she is now off antibiotics as per ID. Cultures have been negative. LE doppler prelim was negative; official report is pending. She was counselled on risks of continued substance abuse. Psychiatry evaluation was appreciated. Elevated LFTs likely secondary to history of hepatitis C. Recommended close outpatient follow up at [facility] hepatitis clinic. Kyung Lemos MD Hospitalist.
--- NOTE | 2016-08-02 16:09 | CP.PCM.PN ---
Subjective - Date & Time of Evaluation Date of Evaluation: 08/02/16 Time of Evaluation: 11:10 - Subjective Subjective: Comfortably resting in bed, still had fevers overnight, not in distress, still complaining of right leg pain, blaming it on her sciatica. Objective - Vital Signs/Intake and Output Vital Signs (last 24 hours): Temp Pulse Resp BP Pulse Ox 100.3 F H 98 H 20 137/100 H 98 08/02/16 08:22 08/02/16 08:22 08/02/16 08:22 08/02/16 08:22 08/02/16 08:22 Intake and Output: 08/02/16 08/02/16 06:59 18:59 Intake Total 3140 Balance 3140 - Medications Medications: Current Medications Acetaminophen (Tylenol 325mg Tab) 650 mg PO Q4 PRN PRN Reason: Fever >100.4 F Last Admin: 08/02/16 05:59 Dose: 650 mg Clonazepam (Klonopin) 0.5 mg PO AMHS GARY PRN Reason: Protocol Last Admin: 08/01/16 22:09 Dose: 0.5 mg Clonidine HCl (Catapres) 0.1 mg PO BID PRN PRN Reason: withdrawals, hold if BP <100/9 Last Admin: 08/01/16 17:27 Dose: 0.1 mg Enoxaparin Sodium (Lovenox) 40 mg SC DAILY GARY PRN Reason: Protocol Last Admin: 08/01/16 11:45 Dose: 40 mg Gabapentin (Neurontin) 300 mg PO TID GARY PRN Reason: Protocol Last Admin: 08/01/16 17:32 Dose: 300 mg Hydromorphone HCl (Dilaudid) 0.5 mg IVP Q4H PRN PRN Reason: Pain, moderate (4-7) Last Admin: 08/02/16 04:47 Dose: 0.5 mg Sodium Chloride (Sodium Chloride 0.9%) 1,000 mls @ 100 mls/hr IV .Q10H GARY Last Admin: 08/02/16 04:02 Dose: 100 mls/hr Aztreonam (Azactam 1 Gm) 100 mls @ 100 mls/hr IVPB Q8 GARY PRN Reason: Protocol Stop: 08/06/16 06:01 Last Admin: 06/09/17 05:57 Dose: 100 mls/hr Vancomycin HCl (Vancomycin 1gm) 1 gm in 250 mls @ 167 mls/hr IVPB Q12H GARY PRN Reason: Protocol Last Admin: 08/02/16 00:06 Dose: 167 mls/hr Quetiapine Fumarate (Seroquel) 25 mg PO HS GARY PRN Reason: Protocol Last Admin: 08/01/16 22:08 Dose: 25 mg - Labs Labs: 08/02/16 07:45 08/02/16 07:45 PT 10.6 Seconds (9.9-11.8) 07/28/16 22:55 INR 0.98 (0.93-1.08) 07/28/16 22:55 APTT 23.7 Seconds (23.7-30.8) 07/28/16 22:55 - Constitutional Appears: Non-toxic, No Acute Distress - Head Exam Head Exam: NORMAL INSPECTION - Neck Exam Neck Exam: absent: Lymphadenopathy, Meningismus - Respiratory Exam Respiratory Exam: Decreased Breath Sounds - Cardiovascular Exam Cardiovascular Exam: +S1, +S2 - GI/Abdominal Exam GI & Abdominal Exam: Soft. absent: Tenderness Assessment and Plan - Assessment and Plan (Free Text) Plan: Assessment Systemic Inflammatory Response Syndrome, consider due to drug withdrawal syndrome, no source of sepsis identified right hip fracture S/P ORIF and pinning POD #4 depression polysubstance abuse (IV heroin and cocaine) positive Hepatitis C antibody Plan on Vancomycin and Azactam day 2; blood, urine cx are negative (including the repeat done on 07/31/2016); PCT is only 0.13, CXR does not show infiltrates; will d/c antibiotics and observe and trend fever curve Follow up HCV RNA PCR HIV test is non-reactive will continue to follow clinically
[2016-08-02 16:15] VITALS: BP 110/72; PULSE 110; RESP 18; O2SAT 100
--- NOTE | 2016-08-02 17:15 | CP.PCM.DIS ---
<Yong Villarreal - Last Filed: 08/02/16 17:10> Provider - Provider Date of Admission: 07/29/16 01:23 Attending physician: Kyung Lemos MD Primary care physician: Svetlana Little MD Consults: ID: [facility]: [place] Psych: Emmie Time Spent in preparation of Discharge (in minutes): 35 Diagnosis - Discharge Diagnosis (1) Femoral neck fracture Status: Resolved Priority: High (2) Hepatitis C Status: Chronic Priority: Medium (3) Substance abuse Status: Chronic Priority: Medium (4) Leg pain Status: Resolved Priority: Low Hospital Course - Lab Results Lab Results: Micro Results 07/29/16 14:45 Blood-Venous Blood Culture - Preliminary NO GROWTH AFTER 4 DAYS 07/29/16 14:30 Blood-Venous Blood Culture - Preliminary NO GROWTH AFTER 4 DAYS 07/31/16 19:02 Urine,Random Urine Culture - Final No Growth (<1,000 CFU/ML) 07/31/16 19:30 Blood-Venous Blood Culture - Preliminary NO GROWTH AFTER 24 HOURS 07/31/16 19:15 Blood-Venous Blood Culture - Preliminary NO GROWTH AFTER 24 HOURS Most Recent Lab Values WBC 5.5 10^3/ul (4.5-11.0) D 08/02/16 07:45 RBC 3.27 10^6/uL (3.5-6.1) L 08/02/16 07:45 Hgb 9.0 gm/dL (12.0-16.0) L 08/02/16 07:45 Hct 28.0 % (36.0-48.0) L 08/02/16 07:45 MCV 85.6 fL (80.0-105.0) 08/02/16 07:45 MCH 27.5 pg (25.0-35.0) 08/02/16 07:45 MCHC 32.1 g/dl (31.0-37.0) 08/02/16 07:45 RDW 12.7 % (11.5-14.5) 08/02/16 07:45 Plt Count 209 10^3/uL (120.0-450.0) 08/02/16 07:45 MPV 11.0 fl (7.0-11.0) 08/02/16 07:45 Gran % 57.2 % (50.0-68.0) 08/02/16 07:45 Lymph % (Auto) 33.0 % (22.0-35.0) 08/02/16 07:45 [place] % (Auto) 7.8 % (1.0-6.0) H 08/02/16 07:45 Eos % (Auto) 1.6 % (1.5-5.0) 08/02/16 07:45 Baso % (Auto) 0.4 % (0.0-3.0) 08/02/16 07:45 Gran # 3.14 (1.4-6.5) 08/02/16 07:45 Lymph # 1.8 (1.2-3.4) 08/02/16 07:45 [place] # 0.4 (0.1-0.6) 08/02/16 07:45 Eos # 0.1 (0.0-0.7) 08/02/16 07:45 Baso # 0.02 K/mm3 (0.0-2.0) 08/02/16 07:45 PT 10.6 Seconds (9.9-11.8) 07/28/16 22:55 INR 0.98 (0.93-1.08) 07/28/16 22:55 APTT 23.7 Seconds (23.7-30.8) 07/28/16 22:55 pO2 189 mm/Hg (30-55) H 07/31/16 19:30 VBG pH 7.43 (7.32-7.43) 07/31/16 19:30 VBG pCO2 40.0 (40-60) 07/31/16 19:30 VBG HCO3 26.5 mmol/l (21-28) 07/31/16 19:30 VBG Total CO2 27.7 mmol.L (22-28) 07/31/16 19:30 VBG O2 Sat (Calc) 99.4 % (40-65) H 07/31/16 19:30 VBG Base Excess 2.0 mmol/L (0.0-2.0) 07/31/16 19:30 VBG Potassium 3.8 mmol/L (3.6-5.2) 07/31/16 19:30 Sodium 138.0 mmol/L (132-148) 07/31/16 19:30 Chloride 110.0 mmol/L (98-107) H 07/31/16 19:30 Glucose 114 mg/dl (65-105) H 07/31/16 19:30 Lactate 1.9 mmol/L (0.7-2.1) 07/31/16 19:30 FiO2 21.0 % 07/31/16 19:30 Sodium 140 mmol/L (132-148) 08/02/16 07:45 Potassium 3.7 mmol/L (3.6-5.0) 08/02/16 07:45 Chloride 105 mmol/L (95-110) 08/02/16 07:45 Carbon Dioxide 28 mmol/L (21-33) 08/02/16 07:45 Anion Gap 11 (10-20) 08/02/16 07:45 BUN 16 mg/dL (7-21) 08/02/16 07:45 Creatinine 0.7 mg/dL (0.5-1.4) 08/02/16 07:45 Est GFR ( Amer) > 60 08/02/16 07:45 Est GFR (Non-Af Amer) > 60 08/02/16 07:45 Random Glucose 107 mg/dL (70-110) 08/02/16 07:45 Calcium 8.5 mg/dL (8.4-10.5) 08/02/16 07:45 Phosphorus 3.2 mg/dL (2.5-4.5) 08/02/16 07:45 Magnesium 1.8 mg/dL (1.7-2.2) 08/02/16 07:45 Total Bilirubin 0.6 mg/dL (0.2-1.3) 07/30/16 07:30 AST 54 U/L (15-39) H 07/30/16 07:30 ALT 76 U/L (7-56) H 07/30/16 07:30 Alkaline Phosphatase 114 U/L (38-133) 07/30/16 07:30 Total Protein 7.7 g/dL (5.8-8.3) 07/30/16 07:30 Albumin 3.2 g/dL (3.0-4.8) 07/30/16 07:30 Globulin 4.6 gm/dL 07/30/16 07:30 Albumin/Globulin Ratio 0.7 (1.1-1.8) L 07/30/16 07:30 Procalcitonin 0.13 NG/ML (0.19-0.49) L 07/30/16 07:30 Beta HCG, Quant < 2.39 mIU/mL (0-6.15) 07/28/16 19:25 Venous Blood Potassium 3.8 mmol/L (3.6-5.2) 07/31/16 19:30 Urine Color Yellow (YELLOW) 07/31/16 19:02 Urine Appearance Clear (CLEAR) 07/31/16 19:02 Urine pH 6.0 (4.7-8.0) 07/31/16 19:02 Ur Specific Pearl 1.025 (1.005-1.035) 07/31/16 19:02 Urine Protein Negative mg/dL (<30 mg/dL) 07/31/16 19:02 Urine Glucose (UA) Negative mg/dL (NEGATIVE) 07/31/16 19:02 Urine Ketones Negative mg/dL (NEGATIVE) 07/31/16 19:02 Urine Blood Negative (NEGATIVE) 07/31/16 19:02 Urine Nitrate Negative (NEGATIVE) 07/31/16 19:02 Urine Bilirubin Negative (NEGATIVE) 07/31/16 19:02 Urine Urobilinogen 0.2 E.U./dL (<1 E.U./dL) 07/31/16 19:02 Ur Leukocyte Esterase Negative Miguel/uL (NEGATIVE) 07/31/16 19:02 Urine RBC 0 - 2 /hpf (0-2) 07/28/16 22:55 Urine WBC 2 - 5 /hpf (0-6) 07/28/16 22:55 Ur Epithelial Cells 0 - 2 /hpf (0-5) 07/28/16 22:55 Urine Bacteria Trace (NEG) 07/28/16 22:55 Hepatitis A IgM Ab Negative (NEGATIVE) 07/30/16 08:28 Hep Bs Antigen Negative (NEGATIVE) 07/30/16 08:28 Hep Bs Antibody Positive (NEGATIVE) 07/30/16 Unknown HIV 1&2 Ag/Ab, 4th Gen Nonreactive (Nonreactive) 07/30/16 08:28 Blood Type O POSITIVE 07/29/16 00:02 Blood Type Confirm O POSITIVE 07/29/16 00:59 Antibody Screen Negative 07/29/16 00:02 Crossmatch See Detail 07/29/16 00:02 BBK History Checked No verified bt 07/29/16 00:02 - Hospital Course Hospital Course: Patient presented to [facility] for L Hip fracture 2/2 fall, underwent R ORIF per ortho. While here, underwent opiate withdrawal, and had continuing fevers, so was also seen by Psych and ID. Her cultures and infectious workup were negative , so her fevers were attributed to both post-op fevers and withdrawal. Per Psych, her anxiety was managed with Klonopin, and she was counseled regarding withdrawal and drug rehab. She is being discharged to an acute rehab as per PT' s recs. Patient is amenable to rehab. Patient then discharged. Please see today's progress note for further details. Discharge Exam - Additional Findings Additional findings: As listed in today's progress note Discharge Plan - Follow Up Plan Condition: STABLE Disposition: REHAB FACILITY/REHAB UNIT Patient education suggested?: Yes Instructions: Narcotic Abuse (DC), Opioid Withdrawal (DC), Anxiety (DC), ORIF of Hip Fracture (DC) Additional Instructions: Please follow up with your primary doctor within 1 week of discharge Please follow up with the orthopedic doctor within 2 weeks of discharge No weight bearing on the affect hip for 2 months Referrals: Svetlana Little MD [Primary Care Provider] - Mo Quinteros MD [Staff Provider] - <Kyung Lemos - Last Filed: 08/02/16 18:28> Provider - Provider Date of Admission: 07/29/16 01:23 Attending physician: Kyung Lemos MD Primary care physician: Sevtlana Little MD Hospital Course - Lab Results Lab Results: Micro Results 07/29/16 14:45 Blood-Venous Blood Culture - Preliminary NO GROWTH AFTER 4 DAYS 07/29/16 14:30 Blood-Venous Blood Culture - Preliminary NO GROWTH AFTER 4 DAYS 07/31/16 19:02 Urine,Random Urine Culture - Final No Growth (<1,000 CFU/ML) 07/31/16 19:30 Blood-Venous Blood Culture - Preliminary NO GROWTH AFTER 24 HOURS 07/31/16 19:15 Blood-Venous Blood Culture - Preliminary NO GROWTH AFTER 24 HOURS Most Recent Lab Values WBC 5.5 10^3/ul (4.5-11.0) D 08/02/16 07:45 RBC 3.27 10^6/uL (3.5-6.1) L 08/02/16 07:45 Hgb 9.0 gm/dL (12.0-16.0) L 08/02/16 07:45 Hct 28.0 % (36.0-48.0) L 08/02/16 07:45 MCV 85.6 fL (80.0-105.0) 08/02/16 07:45 MCH 27.5 pg (25.0-35.0) 08/02/16 07:45 MCHC 32.1 g/dl (31.0-37.0) 08/02/16 07:45 RDW 12.7 % (11.5-14.5) 08/02/16 07:45 Plt Count 209 10^3/uL (120.0-450.0) 08/02/16 07:45 MPV 11.0 fl (7.0-11.0) 08/02/16 07:45 Gran % 57.2 % (50.0-68.0) 08/02/16 07:45 Lymph % (Auto) 33.0 % (22.0-35.0) 08/02/16 07:45 [place] % (Auto) 7.8 % (1.0-6.0) H 08/02/16 07:45 Eos % (Auto) 1.6 % (1.5-5.0) 08/02/16 07:45 Baso % (Auto) 0.4 % (0.0-3.0) 08/02/16 07:45 Gran # 3.14 (1.4-6.5) 08/02/16 07:45 Lymph # 1.8 (1.2-3.4) 08/02/16 07:45 [place] # 0.4 (0.1-0.6) 08/02/16 07:45 Eos # 0.1 (0.0-0.7) 08/02/16 07:45 Baso # 0.02 K/mm3 (0.0-2.0) 08/02/16 07:45 PT 10.6 Seconds (9.9-11.8) 07/28/16 22:55 INR 0.98 (0.93-1.08) 07/28/16 22:55 APTT 23.7 Seconds (23.7-30.8) 07/28/16 22:55 pO2 189 mm/Hg (30-55) H 07/31/16 19:30 VBG pH 7.43 (7.32-7.43) 07/31/16 19:30 VBG pCO2 40.0 (40-60) 07/31/16 19:30 VBG HCO3 26.5 mmol/l (21-28) 07/31/16 19:30 VBG Total CO2 27.7 mmol.L (22-28) 07/31/16 19:30 VBG O2 Sat (Calc) 99.4 % (40-65) H 07/31/16 19:30 VBG Base Excess 2.0 mmol/L (0.0-2.0) 07/31/16 19:30 VBG Potassium 3.8 mmol/L (3.6-5.2) 07/31/16 19:30 Sodium 138.0 mmol/L (132-148) 07/31/16 19:30 Chloride 110.0 mmol/L (98-107) H 07/31/16 19:30 Glucose 114 mg/dl (65-105) H 07/31/16 19:30 Lactate 1.9 mmol/L (0.7-2.1) 07/31/16 19:30 FiO2 21.0 % 07/31/16 19:30 Sodium 140 mmol/L (132-148) 08/02/16 07:45 Potassium 3.7 mmol/L (3.6-5.0) 08/02/16 07:45 Chloride 105 mmol/L (95-110) 08/02/16 07:45 Carbon Dioxide 28 mmol/L (21-33) 08/02/16 07:45 Anion Gap 11 (10-20) 08/02/16 07:45 BUN 16 mg/dL (7-21) 08/02/16 07:45 Creatinine 0.7 mg/dL (0.5-1.4) 08/02/16 07:45 Est GFR ( Amer) > 60 08/02/16 07:45 Est GFR (Non-Af Amer) > 60 08/02/16 07:45 Random Glucose 107 mg/dL (70-110) 08/02/16 07:45 Calcium 8.5 mg/dL (8.4-10.5) 08/02/16 07:45 Phosphorus 3.2 mg/dL (2.5-4.5) 08/02/16 07:45 Magnesium 1.8 mg/dL (1.7-2.2) 08/02/16 07:45 Total Bilirubin 0.6 mg/dL (0.2-1.3) 07/30/16 07:30 AST 54 U/L (15-39) H 07/30/16 07:30 ALT 76 U/L (7-56) H 07/30/16 07:30 Alkaline Phosphatase 114 U/L (38-133) 07/30/16 07:30 Total Protein 7.7 g/dL (5.8-8.3) 07/30/16 07:30 Albumin 3.2 g/dL (3.0-4.8) 07/30/16 07:30 Globulin 4.6 gm/dL 07/30/16 07:30 Albumin/Globulin Ratio 0.7 (1.1-1.8) L 07/30/16 07:30 Procalcitonin 0.13 NG/ML (0.19-0.49) L 07/30/16 07:30 Beta HCG, Quant < 2.39 mIU/mL (0-6.15) 07/28/16 19:25 Venous Blood Potassium 3.8 mmol/L (3.6-5.2) 07/31/16 19:30 Urine Color Yellow (YELLOW) 07/31/16 19:02 Urine Appearance Clear (CLEAR) 07/31/16 19:02 Urine pH 6.0 (4.7-8.0) 07/31/16 19:02 Ur Specific Pearl 1.025 (1.005-1.035) 07/31/16 19:02 Urine Protein Negative mg/dL (<30 mg/dL) 07/31/16 19:02 Urine Glucose (UA) Negative mg/dL (NEGATIVE) 07/31/16 19:02 Urine Ketones Negative mg/dL (NEGATIVE) 07/31/16 19:02 Urine Blood Negative (NEGATIVE) 07/31/16 19:02 Urine Nitrate Negative (NEGATIVE) 07/31/16 19:02 Urine Bilirubin Negative (NEGATIVE) 07/31/16 19:02 Urine Urobilinogen 0.2 E.U./dL (<1 E.U./dL) 07/31/16 19:02 Ur Leukocyte Esterase Negative Miguel/uL (NEGATIVE) 07/31/16 19:02 Urine RBC 0 - 2 /hpf (0-2) 07/28/16 22:55 Urine WBC 2 - 5 /hpf (0-6) 07/28/16 22:55 Ur Epithelial Cells 0 - 2 /hpf (0-5) 07/28/16 22:55 Urine Bacteria Trace (NEG) 07/28/16 22:55 Hepatitis A IgM Ab Negative (NEGATIVE) 07/30/16 08:28 Hep Bs Antigen Negative (NEGATIVE) 07/30/16 08:28 Hep Bs Antibody Positive (NEGATIVE) 07/30/16 Unknown HIV 1&2 Ag/Ab, 4th Gen Nonreactive (Nonreactive) 07/30/16 08:28 Blood Type O POSITIVE 07/29/16 00:02 Blood Type Confirm O POSITIVE 07/29/16 00:59 Antibody Screen Negative 07/29/16 00:02 Crossmatch See Detail 07/29/16 00:02 BBK History Checked No verified bt 07/29/16 00:02 Attending/Attestation - Attestation I have personally seen and examined this patient.: Yes I have fully participated in the care of the patient.: Yes I have reviewed all pertinent clinical information, including history, physical exam and plan: Yes Notes (Text): 08/02/16 18:28 25 year old female with past medical history of hepatitis C and substance abuse including IVDA and cocaine who presented s/p fall found to have right femur surgical neck fracture. She was seen by orthopedics and is now s/p ORIF POD # 4. PT recommended acute rehab where patient was accepted and will be going. Fever trend has coming down and she is now off antibiotics as per ID. Cultures have been negative. She was counselled on risks of continued substance abuse. Elevated LFTs likely secondary to history of hepatitis C. Recommended close outpatient follow up at [facility] hepatitis clinic. Kyung Lemos MD Hospitalist.
[2016-08-02 17:52] VITALS: TEMP 99
--- NOTE | 2016-08-02 18:39 | US ---
PROCEDURE: Bilateral lower extremity venous duplex Doppler. HISTORY: r/o dvt COMPARISON: None available. TECHNIQUE: Bilateral common femoral, superficial femoral, popliteal and posterior tibial veins were evaluated. Flow was assessed with color Doppler, compressibility, assessment of phasic flow and augmentation response. FINDINGS: COMMON FEMORAL VEIN: Right CFV: Normal. Left CFV: Normal. SUPERFICIAL FEMORAL VEIN: Right SFV: Normal. Left SFV: Normal. POPLITEAL VEIN: Right Popliteal: Normal. Left Popliteal: Normal. POSTERIOR TIBIAL VEIN: Right PTV: Normal. Left PTV: Normal. OTHER FINDINGS: None. IMPRESSION: No evidence of deep venous thrombosis.
--- NOTE | 2016-08-03 10:49 | CP.PCM.PCO ---
Physician Communication Note - Physician Communication Note Physician Communication Note: pt was d/c
[2016-08-08 13:32] LABS: HCV RNA QN PCR IU/ML 65787 IU/mL (<15); HCV RNA QN PCR LOG IU/ML 4.82 log IU/mL (<1.18)
== END 2016-08-02 22:52 | DRG 558 ==
LOC: ED 18:44 → ERH 07-29 01:23 → 5RNO 07-29 07:06
PROVIDERS: ADMIT Internal Medicine; ATTEND Internal Medicine
PROC: 0QS634Z Reposition Right Upper Femur with Internal Fixation Device, Percutaneous Approach (ICD-10-PCS; principal; 2016-07-29 02:30)
DX: S72.001A Fracture of unspecified part of neck of right femur, initial encounter for closed fracture (principal); R65.10 Systemic inflammatory response syndrome (SIRS) of non-infectious origin without acute organ dysfunction; R45.851 Suicidal ideations; R56.9 Unspecified convulsions; D69.6 Thrombocytopenia, unspecified; F11.23 Opioid dependence with withdrawal; F14.10 Cocaine abuse, uncomplicated; B19.20 Unspecified viral hepatitis C without hepatic coma; F06.30 Mood disorder due to known physiological condition, unspecified; F31.9 Bipolar disorder, unspecified; F41.9 Anxiety disorder, unspecified; M54.30 Sciatica, unspecified side; R50.82 Postprocedural fever; Z79.899 Other long term (current) drug therapy; F17.210 Nicotine dependence, cigarettes, uncomplicated; Z90.49 Acquired absence of other specified parts of digestive tract; W01.0XXA Fall on same level from slipping, tripping and stumbling without subsequent striking against object, initial encounter; Y92.488 Other paved roadways as the place of occurrence of the external cause; Y93.01 Activity, walking, marching and hiking; Z88.0 Allergy status to penicillin; Z91.018 Allergy to other foods; R40.2412 Glasgow coma scale score 13-15, at arrival to emergency department; D72.829 Elevated white blood cell count, unspecified; D64.9 Anemia, unspecified; R00.0 Tachycardia, unspecified; F60.2 Antisocial personality disorder; F60.3 Borderline personality disorder

== ENCOUNTER 2016-10-24 10:32 | Emergency (ER) | payer MEDICAID, OTHER ==
[2016-10-24 10:55] VITALS: BMI 21.1
--- NOTE | 2016-10-24 11:22 | ED PDOC ---
Arrival/HPI - General Historian: Patient <Cr Milton - Last Filed: 10/24/16 14:11> <Socrates Carlson - Last Filed: 10/25/16 10:25> - General Chief Complaint: Medical Clearance Time Seen by Provider: 10/24/16 10:45 - History of Present Illness Narrative History of Present Illness (Text): 10/24/16 11:18 This is a 26 year old female with PMHx hepatitis C, polysubstance abuse, depression who presents requesting CT scan of her right hip. Patient had right hip ORIF in July 2016 and was sent to [facility]. Patient is brought from rehab to get a CT scan requested by her orthopedic surgeon. Patient complains of pain in the right hip and stated that a couple of weeks ago, there was a blister in the area that was draining. It has since resolved. Patient denies other acute complaints. PMHx: thrombocytopenia, depression, suicidal ideation, hep C, IV heroin and cocaine abuse PSHx: in 2009 Allergy: PCN, cheese Social: Admits to tobacco, alcohol, heroin, cocaine and methadone use PMD: Dr. Little (Cr Milton) Past Medical History - Provider Review Nursing Documentation Reviewed: Yes - Infectious Disease Hx of Infectious Diseases: None - Reproductive Menopause: No - Past Medical History Past Medical History: Unable to Obtain - Cardiac Hx Hypertension: No - Pulmonary Hx Tuberculosis: No - Neurological Hx Seizures: Yes - HEENT Hx HEENT Disorder: No - Renal Hx Renal Disorder: No - Endocrine/Metabolic Hx Endocrine Disorders: No - Hematological/Oncological Hx Anemia: Yes - Integumentary Hx Dermatological Disorder: No - Musculoskeletal/Rheumatological Hx Musculoskeletal Disorders: No - Gastrointestinal Hx Gastrointestinal Disorders: No - Genitourinary/Gynecological Hx Sexually Transmitted Diseases: No - Psychiatric Hx Anxiety: Yes Hx Bipolar Disorder: Yes Hx Depression: Yes Hx Substance Use: Yes - Past Surgical History Past Surgical History: Unable to Obtain - Surgical History Hx Section: Yes Other/Comment: Right Hip Repair - Anesthesia Hx Anesthesia: Yes Hx Anesthesia Reactions: No Hx Malignant Hyperthermia: No - Suicidal Assessment Feels Threatened In Home Enviroment: No <YoanSama Michelle - Last Filed: 10/24/16 14:11> Family/Social History - Physician Review Nursing Documentation Reviewed: Yes Family/Social History: Unknown Family HX Smoking Status: Heavy Smoker > 10 Cigarettes Daily Hx Alcohol Use: No Hx Substance Use: Yes Substance used: heroin, cocaine, methadone Hx Substance Use Treatment: Yes ([facility]) <Cr Milton - Last Filed: 10/24/16 14:11> Allergies/Home Meds <Cr Milton - Last Filed: 10/24/16 14:11> <Socrates Carlson - Last Filed: 10/25/16 10:25> Allergies/Adverse Reactions: Allergies Penicillins Allergy (Verified 08/16/16 15:50) RASH cheese Adverse Reaction (Intermediate, Verified 08/16/16 15:50) RASH Home Medications: Home Meds Medication Instructions Recorded Confirmed Gabapentin 300 mg PO BID 07/21/16 07/29/16 Review of Systems - Review of Systems Constitutional: Normal Eyes: Normal ENT: Normal Respiratory: Normal Cardiovascular: Normal Gastrointestinal: Normal Genitourinary Female: Normal Musculoskeletal: Other (right hip pain) Skin: Normal Neurological: Normal Endocrine: Normal Hemo/Lymphatic: Normal Psychiatric: Normal <Cr Milton - Last Filed: 10/24/16 14:11> Physical Exam Vital Signs Reviewed: Yes Temperature: Afebrile Blood Pressure: Normal Pulse: Regular Respiratory Rate: Normal Appearance: Positive for: Well-Appearing Pain Distress: None Mental Status: Positive for: Alert and Oriented X 3 - Systems Exam Head: Present: Atraumatic, Normocephalic Pupils: Present: PERRL Extroacular Muscles: Present: EOMI Conjunctiva: Present: Normal Mouth: Present: Moist Mucous Membranes Neck: Present: Normal Range of Motion Respiratory/Chest: Present: Clear to Auscultation, Good Air Exchange. No: Accessory Muscle Use Cardiovascular: Present: Regular Rate and Rhythm, Normal S1, S2 Abdomen: Present: Normal Bowel Sounds. No: Tenderness Upper Extremity: Present: Normal Inspection, NORMAL PULSES. No: Edema Lower Extremity: Present: Normal Inspection, NORMAL PULSES, Other (right hip dressing c/d/i. right hip wound closed and healing.). No: Edema, CALF TENDERNESS Neurological: Present: GCS=15, CN II-XII Intact, Motor Func Grossly Intact ( with exception of right hip flexion but limited due to pain) Skin: Present: Warm, Dry, Normal Color Psychiatric: Present: Alert, Oriented x 3 <Cr Milton - Last Filed: 10/24/16 14:11> Medical Decision Making <Cr Milton - Last Filed: 10/24/16 14:11> <Socrates Carlson - Last Filed: 10/25/16 10:25> ED Course and Treatment: 10/24/16 11:32 CBC, CMP, Coag, Urine , CT scan Right Hip w.o. contrast Right Hip w.o. Contrast: FINDINGS: There is loss of the acetabular cortex throughout the acetabulum with severe thinning of the apex of the acetabulum. There is a mottled loss of some of the cortex of the femoral head. There is probable loss of bone across the fracture margins with foreshortening. The compression screws have backed out of the lateral aspect of the proximal femur where they were flush with the cortex at the time of the postoperative portable x-ray s. There is now approximately 2 cm of uncovered compression screw beyond the cortex of the femur. There is periosteal reaction seen about the proximal femoral fragment. There is a joint effusion. The findings are concerning for an infectious arthritis with osteomyelitis. There is no new fracture identified. Soft tissue structures of the pelvis are grossly unremarkable. The uterus and urinary bladder are normal in appearance. The remainder of the visualized bony pelvis is unremarkable. IMPRESSION: Suspected infectious arthritis with osteomyelitis. Probable bony destruction about the fracture margins with foreshortening of the hip and backing out of the compression screws with approximately 2 cm of uncovered screw at the lateral margin of the proximal femur. Periosteal reaction. Thinning of the apex of the acetabulum with diffuse loss of acetabular cortex. Mottled loss of cortex of the femoral head. Joint effusion. Dr. Quinteros (orthopedic) contacted with results. Blood cultures ordered. 1 gram Vancomycin and [address] Quinteros requested IR consult for sample of joint fluid. Will admit to hospitalist service. (Cr Milton) In agreement with resident note, which includes further HPI details. Patient was seen and evaluated with resident, came up with plan and treatment together. 10/24/16 16:34 after admission, dr quinteros [place] [facility] arrangements made for direct admission to dr simpson service. level of care not available at [facility]. pt consents for transfer. vascular and hospitalist aware (Socrates Carlson) - Lab Interpretations Lab Results: 10/24/16 11:41 10/24/16 11:41 Lab Results 10/24/16 11:41: Sodium 141, Potassium 4.0, Chloride 105, Carbon Dioxide 24, Anion Gap 16, BUN 10, Creatinine 0.7, Est GFR ( Amer) > 60, Est GFR (Non- Af Amer) > 60, Random Glucose 117 H, Calcium 10.7 H, Total Bilirubin 0.5, AST 53 H, ALT 31, Alkaline Phosphatase 103, Total Protein 9.5 H, Albumin 4.2, Globulin 5.3, Albumin/Globulin Ratio 0.8 L 10/24/16 11:41: PT 11.1, INR 1.03, APTT 23.7 10/24/16 11:41: WBC 5.5, RBC 4.13, Hgb 11.1 L, Hct 34.5 L, MCV 83.5, MCH 26.9, MCHC 32.2, RDW 15.1 H, Plt Count 169, MPV 12.3 H, Gran % 64.9, Lymph % (Auto) 26.0, Bond % (Auto) 6.0, Eos % (Auto) 2.7, Baso % (Auto) 0.4, Gran # 3.54, Lymph # 1.4, Bond # 0.3, Eos # 0.2, Baso # 0.02 - RAD Interpretation Radiology Orders: 10/24/16 11:25 HIP WITHOUT CONTRAST RIGHT [CT] Stat - Medication Orders Current Medication Orders: Discontinued Medications Hydromorphone HCl (Dilaudid) 4 mg PO ONCE STA Stop: 10/24/16 15:28 Last Admin: 10/24/16 15:42 Dose: 4 mg Re-Assess: MANINDER Pain Assessment Document 10/24/16 16:42 OCS (Rec: 10/24/16 19:07 OCS [id number]) Pain Reassessment Is this a pain reassessment? Yes Sleep Is patient sleeping during reassessment? No Presence of Pain Presence of Pain Yes Pain Scale Used Pain Scale Used Numeric Location Left, Right or Bilateral Right Pain Location Body Site Hip Description Description Constant Intensity of Pain at present 8 Hydromorphone HCl (Dilaudid) 4 mg PO ONCE STA Stop: 10/24/16 19:17 Aztreonam (Azactam 1 Gm) 100 mls @ 100 mls/hr IVPB STAT STA PRN Reason: Protocol Stop: 10/24/16 14:43 Last Admin: 10/24/16 14:41 Dose: 100 mls/hr Vancomycin HCl (Vancomycin 1gm) 1 gm in 250 mls @ 167 mls/hr IVPB STAT STA PRN Reason: Protocol Stop: 10/24/16 15:13 Last Admin: 10/24/16 16:06 Dose: 167 mls/hr <Cr Milton - Last Filed: 10/24/16 14:11> - Scribe Statement The provider has reviewed the documentation as recorded by the Scribe <Socrates Carlson - Last Filed: 10/25/16 10:25> - Scribe Statement Yuliet Dunn Provider Scribe Attestation: All medical record entries made by the Scribe were at my direction and personally dictated by me. I have reviewed the chart and agree that the record accurately reflects my personal performance of the history, physical exam, medical decision making, and the department course for this patient. I have also personally directed, reviewed, and agree with the discharge instructions and disposition.a (Socrates aCrlson) Disposition/Present on Arrival - Present on Arrival Any Indicators Present on Arrival: No History of DVT/PE: No History of Uncontrolled Diabetes: No Urinary Catheter: No History of Decub. Ulcer: No History Surgical Site Infection Following: None - Disposition Have Diagnosis and Disposition been Completed?: Yes Disposition Time: 14:00 Patient Plan: Admission <Cr Milton - Last Filed: 10/24/16 14:11> <Socrates Carlson - Last Filed: 10/25/16 10:25> - Disposition Diagnosis: Osteomyelitis of right hip, Joint effusion [place]position[place] [facility] [place] Referrals: Svetlana Little MD [Primary Care Provider] - Follow up with primary
[2016-10-24 11:53] LABS: BASO # 0.02 K/mm3 (0.0-2.0); BASO % 0.4 % (0.0-3.0); EOS # 0.2 (0.0-0.7); EOS % 2.7 % (1.5-5.0); GRAN # 3.54 (1.4-6.5); GRAN % 64.9 % (50.0-68.0); HEMATOCRIT 34.5 % (36.0-48.0); LYMPH # 1.4 (1.2-3.4); MEAN CELL VOLUME 83.5 fl (80.0-105.0); MEAN CORPUSCULAR HEMOGLOBIN 26.9 pg (25.0-35.0); MEAN CORPUSCULAR HGB CONC 32.2 g/dl (31.0-37.0); MEAN PLATELET VOLUME 12.3 fl (7.0-11.0); MONO # 0.3 (0.1-0.6); RED CELL DISTRIBUTION WIDTH 15.1 % (11.5-14.5); WHITE BLOOD COUNT 5.5 10^3/ul (4.5-11.0)
[2016-10-24 12:03] LABS: INR 1.03 (0.93-1.08); PARTIAL THROMBOPLASTIN TIME 23.7 Seconds (23.7-30.8)
[2016-10-24 12:47] LABS: ALB/GLOB RATIO 0.8 (1.1-1.8); ALKALINE PHOSPHATASE 103 U/L (38-133); ALT/SGPT 31 U/L (7-56); AST/SGOT 53 U/L (15-39); BILIRUBIN,TOTAL 0.5 mg/dL (0.2-1.3); BLOOD UREA NITROGEN 10 mg/dL (7-21); CALCIUM 10.7 mg/dL (8.4-10.5); CARBON DIOXIDE 24 mmol/L (21-33); CHLORIDE 105 mmol/L (98-107); GFR AFRICAN-AMERICAN > 60; GLUCOSE,RANDOM 117 mg/dL (70-110); SODIUM 141 mmol/L (132-148); TOTAL PROTEIN 9.5 g/dL (5.8-8.3)
--- NOTE | 2016-10-24 13:39 | CT ---
PROCEDURE: CT right hip HISTORY: right hip pain s/p ORIF COMPARISON: X-ray right hip 07/29/2016 TECHNIQUE: 2.5 mm contiguous axial sections were acquired through the right hip. Sagittal and coronal images were reformatted from the axial scan. FINDINGS: There is loss of the acetabular cortex throughout the acetabulum with severe thinning of the apex of the acetabulum. There is a mottled loss of some of the cortex of the femoral head. There is probable loss of bone across the fracture margins with foreshortening. The compression screws have backed out of the lateral aspect of the proximal femur where they were flush with the cortex at the time of the postoperative portable x-ray s. There is now approximately 2 cm of uncovered compression screw beyond the cortex of the femur. There is periosteal reaction seen about the proximal femoral fragment. There is a joint effusion. The findings are concerning for an infectious arthritis with osteomyelitis. There is no new fracture identified. Soft tissue structures of the pelvis are grossly unremarkable. The uterus and urinary bladder are normal in appearance. The remainder of the visualized bony pelvis is unremarkable. IMPRESSION: Suspected infectious arthritis with osteomyelitis. Probable bony destruction about the fracture margins with foreshortening of the hip and backing out of the compression screws with approximately 2 cm of uncovered screw at the lateral margin of the proximal femur. Periosteal reaction. Thinning of the apex of the acetabulum with diffuse loss of acetabular cortex. Mottled loss of cortex of the femoral head. Joint effusion. These findings were discussed by telephone with Dr. Carlson at 1:30 p.m. on 10/24/2016.
[2016-10-24] MEDS ORDERED: Aztreonam 1 Gm in NS 100mL 100 ML IVPB STA (13:44)
[2016-10-24] MEDS ORDERED: Vancomycin 1gm in NS 250ml 1 GM/250 ML BAG IVPB STA (13:44)
[2016-10-24 14:42] VITALS: O2SAT 100
[2016-10-24 15:21] VITALS: TEMP 97.8
[2016-10-24 20:02] VITALS: RESP 18
[2016-10-24 20:03] VITALS: BP 105/57; PULSE 88
== END 2016-10-24 21:18 | disposition short-term general hospital (02) ==
LOC: ED 10:32 → ERH 14:02 → UNDOADMIN 14:02 → ERH 14:23 → ED 21:18
DX: M86.8X8 Other osteomyelitis, other site (principal); M25.451 Effusion, right hip; D69.6 Thrombocytopenia, unspecified

== ENCOUNTER 2017-07-03 13:01 | Emergency (ER) | payer OTHER ==
[2017-07-03 13:03] VITALS: BMI 21.1
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
[2017-07-03 13:33] VITALS: BP 98/64; PULSE 108; TEMP 99.2
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
[2017-07-03 14:15] VITALS: RESP 19; O2SAT 98
== END 2017-07-03 14:05 | disposition left against medical advice (07) ==
LOC: ED 13:01
DX: S66.919A Strain of unspecified muscle, fascia and tendon at wrist and hand level, unspecified hand, initial encounter (principal); S96.919A Strain of unspecified muscle and tendon at ankle and foot level, unspecified foot, initial encounter; W10.9XXA Fall (on) (from) unspecified stairs and steps, initial encounter; Y01.XXXA Assault by pushing from high place, initial encounter; F17.210 Nicotine dependence, cigarettes, uncomplicated

== ENCOUNTER 2017-07-05 21:58 | Emergency (ER) | payer OTHER ==
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
[2017-07-05 22:15] VITALS: BMI 21.9
[2017-07-05] MEDS ORDERED: Bacitracin 500 Units/gm Oint Foilpak UD TOP ONE (22:19)
[2017-07-05 22:40] VITALS: O2SAT 100
[2017-07-06 00:22] VITALS: BP 112/68; PULSE 82; RESP 17; TEMP 98.9
== END 2017-07-06 00:22 ==
LOC: ED 21:58
DX: R45.1 Restlessness and agitation (principal); F17.210 Nicotine dependence, cigarettes, uncomplicated

== ENCOUNTER 2017-07-06 09:57 | Emergency (ER) | payer OTHER ==
[2017-07-06 10:00] VITALS: BMI 21.9
[2017-07-06 10:10] VITALS: RESP 18; TEMP 98.2
--- NOTE | 2017-07-06 10:40 | ED PDOC ---
Arrival/HPI - General Chief Complaint: Back Pain Time Seen by Provider: 07/06/17 10:21 Historian: Patient, Police (Brought pt in c/o back pain) EM Caveat: Uncooperative - History of Present Illness Narrative History of Present Illness (Text): 07/06/17 10:34 26 year old female, with h/o bipolar disorder and substance abuse, presents to the emergency department brought in by police because pt c/o back pain drug withdrawal. Pt was seen earlier this morning for pepper spray incident and altercation with police. Pt was assessed, medically cleared and released. Pt reports increase pain in her left hip where she had THR x 1 day due to police handling her. Pt also stares she is going through withdrawal from heroin and xanax that she takes daily. Denies chest pain, shortness of breath, nausea, vomiting, diarrhea, fever, leg pain, headache, change in bowel or urine. Time/Duration: Prior to Arrival Symptom Onset: Sudden Symptom Course: Unchanged Quality: Aching Severity Level: 3 Activities at Onset: Rest Context: Sitting, Other Past Medical History - Provider Review Nursing Documentation Reviewed: Yes - Travel History Have you recently traveled outside [place] w/in the past 3 mons?: No - Past History Past History: No Previous - Infectious Disease Hx of Infectious Diseases: None - Tetanus Immunization Tetanus Immunization: Up to Date - Past Medical History Past Medical History: Unable to Obtain - Cardiac Hx Cardiac Disorders: No (Patient denied) Hx Hypertension: No (Patient denied) - Pulmonary Hx Tuberculosis: No (Patient denied) - Neurological Hx Seizures: Yes - HEENT Hx HEENT Disorder: No - Renal Hx Renal Disorder: No - Endocrine/Metabolic Hx Endocrine Disorders: No - Hematological/Oncological Hx Anemia: Yes - Integumentary Hx Dermatological Disorder: No - Musculoskeletal/Rheumatological Hx Fractures: Yes (r hip) - Gastrointestinal Hx Gastrointestinal Disorders: No - Genitourinary/Gynecological Hx Sexually Transmitted Diseases: No (Patient denied) - Psychiatric Hx Anxiety: Yes Hx Bipolar Disorder: Yes Hx Depression: Yes Hx Substance Use: Yes - Past Surgical History Past Surgical History: Unable to Obtain - Surgical History Hx Section: Yes Hx Orthopedic Surgery: Yes (RT HIP REPLACEMENT 2017) - Anesthesia Hx Anesthesia: Yes Hx Anesthesia Reactions: No Hx Malignant Hyperthermia: No - Suicidal Assessment Feels Threatened In Home Enviroment: No Family/Social History - Physician Review Nursing Documentation Reviewed: Yes Family/Social History: Unknown Family HX Smoking Status: Heavy Smoker > 10 Cigarettes Daily Hx Alcohol Use: No Hx Substance Use: Yes 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) Allergies/Home Meds Allergies/Adverse Reactions: Allergies Penicillins Allergy (Verified 07/06/17 16:49) RASH cheese Adverse Reaction (Intermediate, Verified 07/06/17 16:49) RASH Review of Systems - Review of Systems Systems not reviewed;Unavailable: Uncooperative Constitutional: Normal Eyes: Normal ENT: Normal Respiratory: Normal Cardiovascular: Normal Gastrointestinal: Normal Genitourinary Female: Normal Musculoskeletal: Back Pain Skin: Normal Neurological: Normal Endocrine: Normal Hemo/Lymphatic: Normal Psychiatric: Normal Physical Exam Vital Signs Temp Pulse Resp BP Pulse Ox 07/06/17 13:42 18 99 07/06/17 13:04 85 18 138/69 100 07/06/17 11:27 79 18 145/71 100 07/06/17 10:00 98.2 F 84 18 147/77 100 Temperature: Afebrile Blood Pressure: Normal Pulse: Regular Respiratory Rate: Normal Appearance: Positive for: Well-Appearing, Non-Toxic, Comfortable Pain Distress: None Mental Status: Positive for: Alert and Oriented X 3 - Systems Exam Head: Present: Atraumatic, Normocephalic Pupils: Present: PERRL, Pinpoint Extroacular Muscles: Present: EOMI Conjunctiva: Present: Normal Mouth: Present: Moist Mucous Membranes Neck: Present: Normal Range of Motion Respiratory/Chest: Present: Clear to Auscultation, Good Air Exchange. No: Respiratory Distress, Accessory Muscle Use Cardiovascular: Present: Regular Rate and Rhythm, Normal S1, S2. No: Murmurs Abdomen: Present: Normal Bowel Sounds. No: Tenderness, Distention, Peritoneal Signs Back: Present: Normal Inspection, Paraspinal Tenderness (lumbosacral). No: CVA Tenderness Upper Extremity: Present: Normal Inspection, Normal ROM, NORMAL PULSES. No: Cyanosis, Edema Lower Extremity: Present: Normal Inspection, NORMAL PULSES, Normal ROM. No: Edema, CALF TENDERNESS Neurological: Present: GCS=15, CN II-XII Intact, Speech Normal, Motor Func Grossly Intact, Normal Sensory Function, Gait Normal Skin: Present: Warm, Dry, Normal Color. No: Rashes Psychiatric: Present: Alert, Oriented x 3, Normal Insight, Normal Concentration , Agitated Medical Decision Making ED Course and Treatment: 07/06/17 10:40 Impression 26 year old female, with h/o bipolar disorder and substance abuse, presents to the emergency department brought in by police because pt c/o back pain drug withdrawal. On exam, there is a well heakling Plan labs monitor vitals 07/06/17 12:09 Labs wnl; UA reveals no UTI or other UDS pending Pt remains stable and sleeping but complains of hunger at times; snack given Urine Tox screen reveals high levels of cocaine, opiates and cannabis police await d/c; vss and pt escorted out by police 07/06/17 12:23 07/06/17 13:19 - Lab Interpretations Lab Results: 07/06/17 11:15 07/06/17 11:15 Lab Results 07/06/17 12:11: Urine Opiates Screen Positive H, Urine Methadone Screen Negative , Ur Barbiturates Screen Negative, Ur Phencyclidine Scrn Negative, Ur Amphetamines Screen Negative, U Benzodiazepines Scrn Negative, U Oth Cocaine Metabols Positive H, U Cannabinoids Screen Positive H 07/06/17 11:30: Urine Color Yellow, Urine Appearance Clear, Urine pH 6.0, Ur Specific [place] >= 1.030, Urine Protein Negative, Urine Glucose (UA) Negative, Urine Ketones >=80, Urine Blood Negative, Urine Nitrate Negative, Urine Bilirubin Negative, Urine Urobilinogen 0.2, Ur Leukocyte Esterase Negative 07/06/17 11:15: Sodium 143, Potassium 4.5, Chloride 107, Carbon Dioxide 20 L, Anion Gap 20, BUN 13, Creatinine 0.7, Est GFR ( Amer) > 60, Est GFR (Non- Af Amer) > 60, Random Glucose 88, Calcium 9.7, Total Bilirubin 0.5, AST 72 H D, ALT 30, Alkaline Phosphatase 81, Total Protein 8.4 H, Albumin 4.0, Globulin 4.4 , Albumin/Globulin Ratio 0.9 L 07/06/17 11:15: WBC 5.4, RBC 4.53, Hgb 11.6 L, Hct 35.7 L, MCV 78.8 L D, MCH 25.6, MCHC 32.5, RDW 14.5, Plt Count 129 Disposition/Present on Arrival - Present on Arrival Any Indicators Present on Arrival: Yes History of DVT/PE: No History of Uncontrolled Diabetes: No Urinary Catheter: No History of Decub. Ulcer: No History Surgical Site Infection Following: None - Disposition Have Diagnosis and Disposition been Completed?: Yes Diagnosis: Low back pain, Agitation, Sciatica, Substance abuse Disposition: RELEASED IN POLICE CUSTODY Disposition Time: 13:12 Patient Plan: Discharge Condition: STABLE Discharge Instructions (ExitCare): Low Back Pain in Adults, Drug Abuse and Drug Addiction (DC) Additional Instructions: Jo Ann, If you continue to experience severe back pain or notice a high fever, return to the emergency department for evaluation We highly recommend that you abstain from drug use and seek rehabilitation. PATIENT IS MEDICALLY CLEARED FOR INCARCERATION Referrals: Savanna Swift [Licensed [facility]] - Follow up with primary Forms: [employer] ([place])
[2017-07-06 11:27] LABS: HEMOGLOBIN 11.6 g/dL (12.0-16.0); MEAN CELL VOLUME 78.8 fl (80.0-105.0); MEAN CORPUSCULAR HEMOGLOBIN 25.6 pg (25.0-35.0); MEAN CORPUSCULAR HGB CONC 32.5 g/dl (31.0-37.0); PLATELET COUNT 129 10^3/uL (120.0-450.0); RBC 4.53 10^6/uL (3.5-6.1); RED CELL DISTRIBUTION WIDTH 14.5 % (11.5-14.5); WHITE BLOOD COUNT 5.4 10^3/ul (4.5-11.0)
[2017-07-06 11:39] LABS: URINE BILIRUBIN NEGATIVE (NEGATIVE); URINE BLOOD NEGATIVE (NEGATIVE); URINE GLUCOSE (UA) NEGATIVE (NEGATIVE); URINE LEUKOCYTE ESTERASE NEGATIVE Leu/uL (NEGATIVE); URINE PROTEIN NEGATIVE mg/dL (<30 mg/dL); URINE UROBILINOGEN 0.2 E.U./dL (<1 E.U./dL)
[2017-07-06 11:40] LABS: URINE APPEARANCE CLEAR (CLEAR); URINE COLOR YELLOW (YELLOW)
[2017-07-06 11:42] LABS: ALB/GLOB RATIO 0.9 (1.1-1.8); ALT/SGPT 30 U/L (7-56); AST/SGOT 72 U/L (14-36); BLOOD UREA NITROGEN 13 mg/dL (7-21); CALCIUM 9.7 mg/dL (8.4-10.5); GFR AFRICAN-AMERICAN > 60; GFR NON-AFRICAN AMERICAN > 60
[2017-07-06 12:44] LABS: BARBITURATES, UR NEGATIVE (NEGATIVE); BENZODIAZEPINES, UR NEGATIVE (NEGATIVE); PHENCYCLIDINE, UR NEGATIVE (NEGATIVE)
[2017-07-06 12:47] LABS: OPIATES, UR POSITIVE (NEGATIVE)
[2017-07-06 13:04] VITALS: BP 138/69; PULSE 85
[2017-07-06 13:43] VITALS: O2SAT 99
== END 2017-07-06 13:42 ==
LOC: ED 09:57
DX: M54.40 Lumbago with sciatica, unspecified side (principal); R45.1 Restlessness and agitation; F19.10 Other psychoactive substance abuse, uncomplicated; F17.210 Nicotine dependence, cigarettes, uncomplicated

== ENCOUNTER 2017-07-06 16:34 | Emergency (ER) | payer OTHER ==
[2017-07-06 16:38] VITALS: BMI 21.9
[2017-07-06 16:45] VITALS: RESP 18
--- NOTE | 2017-07-06 18:02 | ED PDOC ---
Arrival/HPI - General Chief Complaint: Psychiatric Evaluation Time Seen by Provider: 07/06/17 16:42 - History of Present Illness Narrative History of Present Illness (Text): 07/06/17 17:59 26 year old female, with h/o bipolar disorder and substance abuse, presents to the emergency department brought in by police for psychological clearance Pt was seen earlier this morning for complaint of low back pain. Pt was assessed, medically cleared for incarceration and released to police. Pt reports increase pain in her left hip where she had THR x 1 day due to police handling her. Pt also stares she is going through withdrawal from heroin and xanax that she takes daily. Denies chest pain, shortness of breath, nausea, vomiting, diarrhea , fever, headache, leg pain, headache, change in bowel or urine. Past Medical History - Provider Review Nursing Documentation Reviewed: Yes - Travel History Have you recently traveled outside [place] w/in the past 3 mons?: No - Past History Past History: No Previous - Infectious Disease Hx of Infectious Diseases: None - Tetanus Immunization Tetanus Immunization: Up to Date - Reproductive Menopause: No - Past Medical History Past Medical History: Unable to Obtain - Cardiac Hx Cardiac Disorders: No (Patient denied) Hx Hypertension: No (Patient denied) - Pulmonary Hx Tuberculosis: No (Patient denied) - Neurological Hx Seizures: Yes - HEENT Hx HEENT Disorder: No - Renal Hx Renal Disorder: No - Endocrine/Metabolic Hx Endocrine Disorders: No - Hematological/Oncological Hx Anemia: Yes - Integumentary Hx Dermatological Disorder: No - Musculoskeletal/Rheumatological Hx Fractures: Yes (r hip) - Gastrointestinal Hx Gastrointestinal Disorders: No - Genitourinary/Gynecological Hx Sexually Transmitted Diseases: No (Patient denied) - Psychiatric Hx Anxiety: Yes Hx Bipolar Disorder: Yes Hx Depression: Yes Hx Substance Use: Yes - Past Surgical History Past Surgical History: Unable to Obtain - Surgical History Hx Section: Yes Hx Orthopedic Surgery: Yes (RT HIP REPLACEMENT 2016) - Anesthesia Hx Anesthesia: Yes Hx Anesthesia Reactions: No Hx Malignant Hyperthermia: No - Suicidal Assessment Feels Threatened In Home Enviroment: No Family/Social History - Physician Review Nursing Documentation Reviewed: Yes Family/Social History: Unknown Family HX Smoking Status: Heavy Smoker > 10 Cigarettes Daily Hx Alcohol Use: No Hx Substance Use: Yes 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) Allergies/Home Meds Allergies/Adverse Reactions: Allergies Penicillins Allergy (Verified 07/06/17 16:49) RASH cheese Adverse Reaction (Intermediate, Verified 07/06/17 16:49) RASH Review of Systems - Review of Systems Systems not reviewed;Unavailable: Uncooperative Constitutional: Normal Eyes: Normal ENT: Normal Respiratory: Normal Cardiovascular: Normal Gastrointestinal: Normal Genitourinary Female: Normal Musculoskeletal: Normal Skin: Normal Neurological: Normal Endocrine: Normal Hemo/Lymphatic: Normal Psychiatric: Normal Physical Exam Vital Signs Reviewed: Yes Vital Signs Temp Pulse Resp BP Pulse Ox 07/06/17 18:38 98.3 F 82 18 120/76 98 07/06/17 16:43 97.9 F 96 H 18 118/65 100 Temperature: Afebrile Blood Pressure: Normal Pulse: Regular Respiratory Rate: Normal Appearance: Positive for: Well-Appearing, Non-Toxic, Comfortable Pain Distress: None Mental Status: Positive for: Alert and Oriented X 3 - Systems Exam Head: Present: Atraumatic, Normocephalic Conjunctiva: Present: Normal Mouth: Present: Moist Mucous Membranes Neck: Present: Normal Range of Motion Respiratory/Chest: Present: Clear to Auscultation, Good Air Exchange. No: Respiratory Distress, Accessory Muscle Use Cardiovascular: Present: Regular Rate and Rhythm, Normal S1, S2. No: Murmurs Abdomen: No: Tenderness, Distention, Peritoneal Signs Back: Present: Normal Inspection Upper Extremity: Present: Normal Inspection. No: Cyanosis, Edema Lower Extremity: Present: Normal Inspection. No: Edema Neurological: Present: GCS=15, CN II-XII Intact, Speech Normal Skin: Present: Warm, Dry, Normal Color. No: Rashes Psychiatric: Present: Alert, Oriented x 3, Normal Insight, Normal Concentration , Normal Affect, Normal Mood Medical Decision Making ED Course and Treatment: 07/06/17 19:39 Impression 26 year old female, with h/o bipolar disorder and substance abuse, presents to the emergency department brought in by police for psychological clearance Plan PES assessment assess and dispo Progress Note PES absence management consultant cleared patient for incarceration VSS on d/c - Medication Orders Current Medication Orders: Discontinued Medications Lorazepam (Ativan) 2 mg PO ONCE ONE PRN Reason: Protocol Stop: 07/06/17 16:51 Last Admin: 07/06/17 17:01 Dose: 2 mg Disposition/Present on Arrival - Present on Arrival Any Indicators Present on Arrival: Yes History of DVT/PE: No History of Uncontrolled Diabetes: No Urinary Catheter: No History of Decub. Ulcer: No History Surgical Site Infection Following: None - Disposition Have Diagnosis and Disposition been Completed?: Yes Diagnosis: Psychiatric exam requested by authority Disposition: RELEASED IN POLICE CUSTODY Disposition Time: 19:40 Patient Plan: Discharge, Other (Psychiatric clearance for incarceration) Condition: STABLE Additional Instructions: PATIENT IS CLEARED FOR INCARCERATION Referrals: PCP,NO [Primary Care Provider] - Follow up with primary Forms: [employer] ([place])
[2017-07-06 18:58] VITALS: TEMP 98.3
[2017-07-07 01:56] VITALS: BP 120/70; PULSE 84; O2SAT 100
== END 2017-07-06 19:59 ==
LOC: ED 16:34
DX: Z04.6 Encounter for general psychiatric examination, requested by authority (principal); F17.210 Nicotine dependence, cigarettes, uncomplicated